=== PATIENT | male | born 1970 | race Caucasian/White ===

== ENCOUNTER 2019-06-02 05:31 | Inpatient (IN) | payer OTHER ==
[~2019-06-02] VITALS: Ht 175.3 cm; Wt 104.8 kg
[2019-06-02] VITALS (10 sets, daily range): BP systolic 96–158; BP diastolic 53–86
[2019-06-02] MEDS ORDERED: ONDANSETRON PF 4 MG/2 ML VIAL. IVP PRN ×2 (06:00→12:45)
[2019-06-02] MEDS: fentaNYL PF VIAL 100 MCG/2 ML VIAL IVP PRN ×2 (06:22→09:24)
[2019-06-02] MEDS: IV NORMAL SALINE 1000ML BAG 1,000 ML IV SCH ×2 (06:31→13:32)
[2019-06-02] MEDS ORDERED: VENTOLIN HFA18 GM INH (06:45)
--- NOTE | 2019-06-02 06:55 | NUR ---
Admit to 2north room 206 via EMS from [facility]. A/O x 4. Dx SBO. VSS. Orientated to room and POC. Verbalized understanding. Resting in bed with call light at hand.
[2019-06-02] MEDS ORDERED: IV NORMAL SALINE 1000ML BAG 1,000 ML IV ONE (08:45)
[2019-06-02] MEDS ORDERED: PIPERACILLIN/TAZOBACTAM 3.375 GM in IV NORMAL SALINE 50ML 50 ML IV SCH (08:45)
--- NOTE | 2019-06-02 08:55 | HP ---
ADMIT DATE: 06/02/2019 HISTORY OF PRESENT ILLNESS: The patient is a 48-year-old male patient who presented to the Emergency Room of [facility] complaining of abdominal pain. Apparently, he has not been able to eat and drink because of severe pain that started on 's Jeniffer. He has not had any bowel movement, has not passed any gas since 's Jeniffer. He was extensively evaluated in the Emergency Room and the lab work showed leukocytosis, white cell count 12,900 and thrombocytosis. He has also lactic acidosis, impaired kidney function and his CT scan of the abdomen and pelvis showed that he has scattered loops of dilated as well as thick walled and hyperenhancing small bowel scattered throughout the abdomen, small amount of pneumoperitoneum, as well as complex free fluid. The greatest volume of which is seen within the pelvis. There is no discrete transition point to suggest perforation related to high-grade mechanical obstruction and spontaneous perforation secondary to active inflammation in the setting of reported Crohn's is really consideration. The site of perforation is favored at the left lower quadrant given inflammation, greatest at this location. No drainable fluid collection. The colon is collapsed distal to the splenic flexure, more proximal fluid within the colonic lumen and mild distention measuring up to 7.2 cm. No pneumatosis, no focal abnormality of the stomach. The low attenuation in the liver can be seen with hepatic steatosis, distended gallbladder without calcified stones or finding of cholecystitis, no focal pancreatic abnormality. Unremarkable spleen, adrenal glands and kidneys and mostly collapsed urinary bladder, dystrophic mineralization within the prostate. Therefore, the patient has an NG tube placed and was transferred to [facility] for surgical consult. PAST MEDICAL HISTORY: Significant for Crohn's disease; however, according to his , he has not seen a doctor for almost 10 years now. He has bronchial asthma/COPD, history of nephrolithiasis, had a stone, for which he underwent retrograde pyelography and stone retrieval and stent placement and removal. PAST SURGICAL HISTORY: Significant for cystoscopy, retrograde pyelography and stent placement. ALLERGIES: He has no known drug allergies. MEDICATIONS: He is currently only on inhalers. FAMILY HISTORY: He has 4 brothers and 1 sister older. He is the youngest. His father at the age of 58 because of myocardial infarction. His mother also because of some lung disease. SOCIAL HISTORY: He is , has 3 daughters. Quit smoking about 8 years ago; however, continues to chew tobacco. He used to be a heavy drinker, but over the last 8 years he cut down the amount of alcohol drinking, the last drink was about a month ago. He used marijuana occasionally. He works installing windows. REVIEW OF SYSTEMS: The patient denied any blurring of vision, cataract, glaucoma or macular degeneration. Denied any earache, tinnitus or sensorineural deafness. Denied any nosebleeds, stuffy nose or postnasal drip. Denied any sore throat, sore tongue, toothache, hoarseness of voice or difficulty swallowing. Denied any nausea, vomiting, but has not had any bowel movement or passed any gas since s Jeniffer. Did complain of severe abdominal pain. Denied any dysuria, frequency or hematuria. Denied any chest pain, shortness of breath, orthopnea, paroxysmal nocturnal dyspnea. Denied any cough, phlegm or hemoptysis. Denied any chills, rigors or fever. PHYSICAL EXAMINATION: GENERAL: On arrival to the Emergency Room, he was clearly in distress and pain, but there was no pallor, jaundice, cyanosis or thyromegaly. No jugular venous distention. No limb edema. VITAL SIGNS: His heart rate was 119, blood pressure was 140/90, temperature was 98.2, respiratory rate was 26 and oxygen saturation was 97%. HEAD, EYES, EARS, NOSE AND THROAT: Showed normocephalic, atraumatic. NECK: Supple. HEART: Showed normal first and second heart sounds. No gallop or murmur. CHEST: Clear to auscultation. No crepitation or rhonchi. ABDOMEN: Markedly distended, diffusely tender and bowel sounds are sluggish. NEUROLOGIC: He is awake, alert, responding appropriately. All cranial nerves intact. EXTREMITIES: He moves extremities without difficulty. He has a NG tube to intermittent suction. LABORATORY DATA: Showed a white cell count 12,900, hemoglobin 14.4, hematocrit 43, MCV 82 and platelet count of 695,000 with normal manual differential. His chemistry showed a serum sodium 141, potassium 4.3, chloride 102, bicarbonate 26, anion gap of 13, BUN 25, creatinine 1.7, estimated GFR was 43 mL per minute. His glucose 143. Lactic acid is going up from 3.1, has risen to 4.9. Calcium was 9.6. Total bilirubin, AST, ALT, alkaline phosphatase were normal. CK was 52. Total protein was 7.5, albumin was 3.3. Amylase and lipase are normal. His prothrombin time, INR and aPTT were normal. His acute abdomen series showed a large gas, dilated segment of small bowel with air fluid levels concerning for small bowel obstruction. The enteric catheter demonstrated on the exam time, earlier is not seen. Correlation with presence of the catheter was advised. His CT scan of the abdomen and pelvis showed that he has scattered loops of dilated as well as thick walled and hyperenhancing small bowel, scattered throughout the abdomen. Small amount of pneumoperitoneum, as well as complex free fluid. The greatest volume of which is seen within the pelvis. There is no discrete transition point to suggest perforation related to high-grade mechanical obstruction and spontaneous perforation secondary to active inflammation in the setting of reported Crohn's disease really consideration. The site of perforation is favored at left lower quadrant given inflammation greatest at this location. No drainable fluid collection. The KUB showed that the enteric catheter tip terminates in the region of the stomach. The patient was transferred to [facility] with bowel obstruction and perforation. He will be kept n.p.o., continue with IV fluid, IV antiemetic and pain medication. We will consult the real estate leasing agent as well as the surgical team. SAMREEN GOODE MD DR: ACE/suzette JOB#: [id number] / [id number]
--- NOTE | 2019-06-02 09:38 | PDOC2 ---
CHAPARRITA FERNANDO QUALITY ASSURANCE ASSOCIATE 06/02/19 0938: CONSULT Date of Consult Date of Consult DATE: 06/02/19 TIME: 09:30 Reason for Consult Reason for Consult: abd pain Referring Physician Referring Physician: Dr Knapp Identification/Chief Complaint Chief Complaint abdominal pain Source Source: Chart review, Patient History of Present Illness Reason for Visit: Patient is a pretty poor historian Reports acute onset of lower abdominal pain after eating on New years Jeniffer. Associated nausea, emesis, denies diarrhea. Pain continued to worsen There is some question in history about Crohns, reports colonoscopy 10 years ago, thought crohns, never had treatment CT at [facility] concerning for bowel perf, concern related to inflammatory disease, elevated lactic Past Medical History Pulmonary: COPD GI: Other (? inflammatory bowel disease ) Past Surgical History Past Surgical History: No pertinent history Family History Family History: Other (noncontributory to current illness ) Social History No ALCOHOL: rare Drugs: None Lives: with Family Current Medications Current Medications Current Medications Sodium Chloride 1,000 ml @ 150 mls/hr Q6H40M IV Last administered on 06/02/19at 06:31; Start 06/02/19 at 06:00 Metronidazole 100 ml @ 100 mls/hr Q8HRS IV ; Start 06/02/19 at 14:00; Stop 06/02/19 at 08:36; Status DC Ceftriaxone Sodium (Rocephin) 1 gm Q24H IVP ; Start 06/02/19 at 23:00; Stop 06/02/19 at 08:36; Status DC Ondansetron HCl (Zofran) 4 mg PRN Q4HRS PRN IVP NAUSEA/VOMITING 1ST CHOICE; Start 06/02/19 at 06:00 Fentanyl Citrate (Fentanyl 2ml Vial) 50 mcg PRN Q3HRS PRN IVP SEVERE PAIN 7-10 Last administered on 06/02/19at 06:22; Start 06/02/19 at 06:15 Sodium Chloride 1,000 ml @ 1,000 mls/hr 1X ONCE IV ; Start 06/02/19 at 08:45; Stop 06/02/19 at 09:44 Piperacillin Sod/ Tazobactam Sod 3.375 gm/Sodium Chloride 50 ml @ 100 mls/hr Q8H IV ; Start 06/02/19 at 08:45; Stop 1/2/20 at 09:23; Status DC Linezolid/Dextrose 300 ml @ 300 mls/hr Q12HR IV ; Start 06/02/19 at 09:00 Piperacillin Sod/ Tazobactam Sod 3.375 gm/Sodium Chloride 50 ml @ 100 mls/hr Q6HRS IV ; Start 06/02/19 at 10:00 Active Scripts Active Reported Ventolin Hfa Inhaler (Albuterol Sulfate) 18 Gm Hfa.aer.ad 2 Puff INH QID PRN Allergies Allergies: Coded Allergies: No Known Allergies (Verified Allergy, Unknown, 06/02/19) ROS General: YES: Chills, Fatigue PSYCHOLOGICAL ROS: No: Anxiety, Depression Eyes: No Blurry vision, No Double vision HEENT: No: Heacaches, Sore Throat Respiratory: No: Cough Cardiovascular: No Chest Pain, No Palpitations Gastrointestinal: Yes Other (see hpi) Genitourinary: YES Dysuria; No Hematuria Musculoskeletal: No Joint Pain, No Muscular Weakness Neurological: No Impaired Coord/balance, No Numbness/Tingling Skin: No Pruritus, No Rash Physical Exam General: Alert, Oriented X3, Cooperative HEENT: Atraumatic, PERRLA, Other (NG in place, bloody drainage ) Lungs: Clear to auscultation, Normal air movement Heart: Regular rate, Normal S1, Normal S2 Abdomen: Other (distended, firm, tender on exam) Extremities: No clubbing, No cyanosis Skin: No rashes, No breakdown Neuro: Normal gait, Normal speech Psych/Mental Status: Mental status NL, Mood NL Vitals VITALS Vital Signs Date Time Temp Pulse Resp B/P (MAP) Pulse Ox O2 Delivery O2 Flow Rate FiO2 06/02/19 07:00 99.1 101 16 121/75 (90) 94 Nasal Cannula 99.1 Images Images Impression: 1. Scattered loops of dilated as well as thick walled and hyperenhancing small bowel scattered throughout the abdomen. Small amount of pneumoperitoneum as well as complex free fluid the greatest volume of which is seen within the pelvis. There is no discrete transition point to suggest perforation related to a high-grade mechanical obstruction and spontaneous perforation secondary to active inflammation in the setting of reported Crohn's is the leading consideration. The site of perforation is favored at the left lower quadrant given inflammation greatest at this location. No drainable fluid collection. 2. Additional chronic findings as discussed above. Assessment/Plan Assessment/Plan Ct reviewed--concern for bowel perf, noted lactic at [facility] 4.9--labs this AM pending ? crohns, awaiting previous path from colonoscopy--D/W Joann from GI will review with TAYLOR Mckinley MD 06/02/19 1016: CONSULT Assessment/Plan Assessment/Plan Pt seen and examined. Agree with MsAngely Fernando's note Pt with c/o severe pain, elevated lactic acid NGT in place with minimal serosang output, non billious abd obese, distended, diffuse TTP with guarding Given imaging, clinical status and labs, favor urgent exploratory laparotomy for perforation of unknown source. Crohn's versus diverticulitis. Pt with previous concern for crohn's but not biopsy proven. R/R/B/A d/w pt and pt's supportive . Risks, including, but not limited to: bleeding, infection, damage to surrounding structures, risk of anesthesia, risk of , risk of stoma. Pt is at increased risk given comorbidity, specifically COPD. Thanks for consult! CHAPARRITA FERNANDO APRN Jun 02, 2019 09:38 TAYLOR PURDY MD Jun 02, 2019 10:16
[2019-06-02 09:43] LABS: BASO % 0 % (0-3); EOS % 0 % (0-3); HEMATOCRIT 37.4 % (39.0-53.0); HEMOGLOBIN 12.1 g/dL (13.0-17.5); LYMPH # 0.3 x10^3/uL (1.0-4.8); LYMPH % 3 % (24-48); MEAN CORPUSCULAR HEMOGLOBIN 27 pg (25-35); MEAN CORPUSCULAR HGB CONC 32 g/dL (31-37); MEAN CORPUSCULAR VOLUME 84 fL (79-100); MONO # 0.5 x10^3/uL (0.0-1.1); MONO % 6 % (0-9); NEUT # 7.5 x10^3/uL (1.8-7.7); NEUT % 91 % (31-73); PLATELET COUNT 422 x10^3/uL (140-400); RED BLOOD COUNT 4.46 x10^6/uL (4.30-5.70); RED CELL DISTRIBUTION WIDTH 14.9 % (11.5-14.5); WHITE BLOOD COUNT 8.2 x10^3/uL (4.0-11.0)
--- NOTE | 2019-06-02 09:52 | PDOC2 ---
GI CONSULT Reason For Consult: Crohn's disease HPI: HPI: 48 y/o male transferred from [facility]. Terrible "bloating" abdominal discomfort associated w/ vomiting and a little diarrhea that began without precipitating events on JOHNNIE. says he often has GI issues and sees PCP for antibiotics. He denies this. There is some questionable h/o Crohn's disease - he says about 10 years ago this was suggested as diagnosis because he had runny stools. He says he had an EGD and colonoscopy at some point but can't remember when or any significant findings. He says his PCP gave him 6 pills a day for awhile but it's unclear if that helped his symptoms. Has been off of those medications for awhile. He indicates that runny stools have not been a chronic issue. Denies reflux/heartburn, dysphagia, hematemesis, hematochezia, melena, constipation, and weight loss. No GB, liver, pancreas, or PUD history. At [facility]: WBC 12.9, elevated lactic acid. On CT: scattered loops of dilated and thicken walled and hyperenhancing small bowel scattered throughout abdomen, small amount of pneumoperitoneum as well as complex free fluid (greatest in pelvis), no discrete transition point to suggest perforation related to a high-grade mechanical obstruction and spontaneous perforation second to active inflammation in the setting of reported Crohn's, site of perforation favored in LLQ Reviewed office records after I saw him - Office visit in 12/2009 indicated worsening diarrhea and periumbilical pain associated w/ anorexia. CT scan apparently showed thickening of distal ileum raising question of Crohn's. Another office visit that month noted improved abd pain, diarrhea, and appetite w/ prednisone, Pentasa, and decreased use of tobacco. Also indicated small bowel involvement on SBS. EGD and colonoscopy for abdominal pain and chronic diarrhea in 11/2009 showed normal esophagus, gastritis, and mild atrophic duodenitis (biopsy w/o significant pathologic abnormalities), and internal hemorrhoids. PMH: PMH: Crohn's disease, nephrolithiasis, COPD FH: Family History: No pertinent hx (denies IBD), Cancer (office records note FH colon cancer - he denies) Social History: Smoke: Quit ALCOHOL: occassional Drugs: None ROS: GEN: Denies fevers, chills, sweats HEENT: Denies blurred vision, sore throat CV: Denies chest pain RESP: Denies shortness of air, cough GI: Per HPI : Denies hematuria, dysuria ENDO: Denies weight changes NEURO: Denies confusion, dizziness MSK: Denies weakness, joint pain/swelling SKIN: Denies jaundice, pruritus Vitals: Vitals: Vital Signs Date Time Temp Pulse Resp B/P (MAP) Pulse Ox O2 Delivery O2 Flow Rate FiO2 06/02/19 09:24 Room Air 06/02/19 07:00 99.1 101 16 121/75 (90) 94 99.1 Labs: Labs: Per HPI. Allergies: Coded Allergies: No Known Allergies (Verified Allergy, Unknown, 06/02/19) Medications: Current Medications Medications (Trade) Dose Ordered Sig/Bebeto Route PRN Reason Start Time Stop Time Status Last Admin Dose Admin Sodium Chloride 1,000 ml @ 150 mls/hr Q6H40M IV 06/02/19 06:00 06/02/19 06:31 Fentanyl Citrate (Fentanyl 2ml Vial) 50 mcg PRN Q3HRS PRN IVP SEVERE PAIN 7-10 06/02/19 06:15 06/02/19 09:24 Sodium Chloride 1,000 ml @ 1,000 mls/hr 1X ONCE IV 06/02/19 08:45 06/02/19 09:44 DC 06/02/19 09:25 Linezolid/Dextrose 300 ml @ 300 mls/hr Q12HR IV 06/02/19 09:00 06/02/19 09:24 Imaging: Imaging: Per HPI. PE: GEN: uncomfortable HEENT: NG tube w/ minimal very light watery red output LUNGS: NC HEART: mildly tachycardic ABD: distended, diffuse discomfort, quiet EXTREMITY: No edema SKIN: No rashes, no jaundice NEURO/PSYCH: A & O 3 A/P: A/P: Suspected h/o Crohn's disease - abnormal SB imaging in 2009 according to office records; EGD and colonoscopy unrevealing at that time; treated w/ Pentasa and prednisone w/ improvement of pain and diarrhea Abd distention/pain, vomiting - acute onset 05/31 Leukocytosis, lactic acidosis Abnormal CT - pneumoperitoneum, free fluid CRC screen - normal in 2009 -- D/w Betty and Dr. Knapp. Follow surgical and ID recs. Add acid-clinical support tech. CRESCENCIO CHANDRA Jun 02, 2019 09:52
[2019-06-02 09:56] LABS: CALCIUM 7.9 mg/dL (8.5-10.1); CREATININE 1.6 mg/dL (0.7-1.3); POTASSIUM 4.4 mmol/L (3.5-5.1)
[2019-06-02] MEDS ORDERED: IV RINGERS,LACTATED 1000ML 1,000 ML IV SCH (09:56)
[2019-06-02] MEDS ORDERED: PROCHLORPERAZINE 10 MG/2 ML VIAL. IV PRN (10:00)
[2019-06-02] MEDS ORDERED: ONDANSETRON PF 4 MG/2 ML VIAL. IV PRN (10:00)
[2019-06-02] MEDS ORDERED: LIDOCAINE 1% PF 2 ML VIAL. ID PRN (10:00)
[2019-06-02] MEDS ORDERED: MORPHINE SULFATE 2 MG/ML VIAL. IV PRN (10:00)
[2019-06-02] MEDS ORDERED: HYDROmorphone 2 MG/ML VIAL IV PRN (10:00)
[2019-06-02] MEDS ORDERED: fentaNYL PF VIAL 100 MCG/2 ML VIAL IV PRN (10:00)
[2019-06-02 10:01] LABS: ALBUMIN 2.4 g/dL (3.4-5.0); ALBUMIN/GLOBULIN RATIO 0.7 (1.0-1.7); TOTAL BILIRUBIN 0.8 mg/dL (0.2-1.0)
[2019-06-02] MEDS ORDERED: ROCURONIUM 50 MG/5 ML VIAL. ONE ×2 (10:27→12:10)
[2019-06-02] MEDS ORDERED: SUCCINYLCHOLINE 200 MG/10 ML VIAL. ONE (10:27)
[2019-06-02] MEDS ORDERED: ONDANSETRON PF 4 MG/2 ML VIAL. ONE (10:27)
[2019-06-02] MEDS ORDERED: MIDAZOLAM HCL/PF 2 MG/2 ML VIAL. ONE (10:27)
[2019-06-02] MEDS ORDERED: fentaNYL PF VIAL 100 MCG/2 ML VIAL ONE ×3 (10:27→13:52)
[2019-06-02] MEDS ORDERED: PROPOFOL 20 ML IV ONE (10:27)
[2019-06-02] MEDS ORDERED: FAMOTIDINE 20 MG/2 ML VIAL ONE (10:27)
[2019-06-02] MEDS ORDERED: DEXAMETHASONE SOD PHOS 4 MG/ML VIAL ONE (10:27)
[2019-06-02] MEDS: PIPERACILLIN/TAZOBACTAM 3.375 GM in IV NORMAL SALINE 50ML 50 ML IV SCH ×4 (10:45→23:43)
[2019-06-02] MEDS ORDERED: PIPERACILLIN/TAZOBACTAM 3.375 GM in IV NORMAL SALINE 50ML 50 ML IV ONE (10:45)
[2019-06-02 10:50] LABS: % BANDS 21 % (0-9); % LYMPHS 5 % (24-48); % MONOS 6 % (0-10); % MYELOS 1 % (0-0); % SEGS 67 % (35-66); PLT ESTIMATE ADEQUATE (ADEQUATE)
[2019-06-02] MEDS ORDERED: HYDROmorphone 2 MG/ML VIAL ONE (11:34)
[2019-06-02] MEDS ORDERED: 0.9 % SODIUM CHLORIDE 20 ML VIAL. IJ ONE (11:34)
[2019-06-02] MEDS ORDERED: LABETALOL 20 MG/4 ML DISP.SYRIN. IVP ONE (11:45)
[2019-06-02] MEDS ORDERED: HYDROmorphone STANDARD PCA 12 MG/30 ML SYRINGE. IV ONE (12:00)
[2019-06-02] MEDS ORDERED: GLYCOPYRROLATE 1 MG/5 ML VIAL. ONE (12:15)
[2019-06-02] MEDS ORDERED: NEOSTIGMINE METHYLSULFATE 5 MG/5 ML SYRINGE. ONE (12:15)
[2019-06-02] MEDS ORDERED: SEVOFLURANE 61 TO 120 MINUTES. IH ONE (12:18)
--- NOTE | 2019-06-02 12:20 | NUR ---
SS following for discharge planning. SS reviewed pt chart. Pt is from home with spouse and is currently on room air. SS will continue to follow for discharge planning.
[2019-06-02] MEDS ORDERED: NALOXONE 0.4 MG/ML VIAL. IV PRN (12:45)
[2019-06-02] MEDS ORDERED: 0.9 % SODIUM CHLORIDE 10 ML DISP.SYRIN. IV PRN (12:45)
--- NOTE | 2019-06-02 12:50 | PDOC4 ---
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 Midline incision was made with cautery. Fascia divided in midline. Large amount of ascites evacuated which was purulent in nature. Cultures obtained. Abdominal cavity was explored and findings as above. Appendix was identified and resected, given suspect crohn's. Mesoappendix divided with ligasure. Base of appendix divided with KRISTIE stapler. Staple line oversewn with 3 0 vicryl. Appendix sent to pathology for evaluation. Small bowel area of concern was addressed. This was in the distal small bowel. Multiple skip lesions noted in this area. Adherent small bowel to another more distal segment noted. 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 Inflammation and infection appeared to be coming from this area. Small bowel resected proximal and distally to these areas of concern using KRISTIE. Mesentery taken with ligasure. Mesenteric vessels controlled with 3 0 vicryl. Specimen sent to pathology for evaluation. Extent of resection attempted to be minimized, given concern for crohn's. Side to side stapled anastomosis created with KRISTIE stapler 75. End sealed with TA 60. Anastomosis reinforced with 3 0 vicryl. Anastomosis noted to be patent, viable, under no tension and without evidence of leakage. Copious irrigation. No evidence of bleeding or other pathology noted. Remaining small bowel still with multiple skip lesions, but viable otherwise. Fascia repaired with 0 looped PDS. Skin repaired with 3 0 vicryl and 4 0 monocryl. [place] left in wound and secured with 3 0 PDS. Dressing placed. Patient tolerated procedure well and sent to PACU in stable condition. All counts correct. Wound class is dirty, 4. Difficult procedure throughout, given patient's obesity and extensive, diffuse peritonitis as well as crohn's changes of the bowel. Perioperative complication risk is high, given these findings, as well as COPD history. Ostomies to be avoided in crohn's as well as with thick abdominal wall. TAYLOR PURDY MD Jun 02, 2019 12:50
[2019-06-02] MEDS: ENOXAPARIN 40 MG/0.4 ML SYRINGE. SQ SCH (13:00)
[2019-06-02] MEDS: HYDROmorphone 12mg/30ml PCA 30 ML IV PRN (13:22)
[2019-06-02] MEDS: fentaNYL PF VIAL 100 MCG/2 ML VIAL IV PRN ×2 (13:59→14:15)
--- NOTE | 2019-06-02 13:59 | RAD ---
KUB 06/02/2019 12:00 AM INDICATION: Postoperative KUB in the OR. Post exploratory laparoscopy and bowel resection. COMPARISON: Abdominal radiograph 06/20/2019 TECHNIQUE: Single view the abdomen is provided. FINDINGS/ IMPRESSION: 1. Dilated small bowel loops are present. Nasogastric tube is partially profiled at the distal tip projecting over the expected region of the stomach. Bowel wall thickening is noted the central abdomen with bowel loops measuring up to 4.1 cm compatible with small bowel obstruction. 2. Free intraperitoneal air most favors recent postoperative status. 3. No radiopaque foreign density. Electronically signed by: Anu Forrester MD (06/02/2019 1:56 PM) [id number]
[2019-06-02] MEDS: IV RINGERS,LACTATED 1000ML 1,000 ML IV SCH ×2 (15:10→23:43)
--- NOTE | 2019-06-02 17:07 | NUR ---
Left arterial line positional, unable to get blood return. Line dc'd. site soft no hematoma, pressure dressing applied. Pt taking ice chips. NG to LCS, placement verified. Very little gastric return at this time.
--- NOTE | 2019-06-02 19:02 | NUR ---
Pt still stating pain at a 8 out of 10. Dose increased to 0.2mg q 10 minutes as per order. Family at bedside.
[2019-06-02] MEDS ORDERED: cefTRIAXone IV Push 1 GM VIAL. IVP SCH (23:00)
[2019-06-03] VITALS (16 sets, daily range): BP systolic 112–148; BP diastolic 65–98
[2019-06-03] MEDS: HYDROmorphone 12mg/30ml PCA 30 ML IV PRN (03:26)
[2019-06-03] MEDS: PIPERACILLIN/TAZOBACTAM 3.375 GM in IV NORMAL SALINE 50ML 50 ML IV SCH ×4 (06:01→23:59)
[2019-06-03] MEDS: IV RINGERS,LACTATED 1000ML 1,000 ML IV SCH ×2 (08:07→17:41)
--- NOTE | 2019-06-03 08:08 | PN ---
DATE: 06/03/2019 SUBJECTIVE: The patient is resting flat, comfortably, in no apparent respiratory distress. He continued to have some abdominal pain. So far, he did not have any bowel movement or pass any gas. He underwent exploratory laparotomy, lysis of adhesions, small bowel resection, and appendectomy. 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 Normal stomach. Normal liver and gallbladder. OBJECTIVE: GENERAL: I examined him this morning, he was resting flat with an NG tube to intermittent suction. He was somewhat pale, no jaundice, cyanosis or thyromegaly. No jugular venous distention. No lower limb edema. VITAL SIGNS: His heart rate was 68, his blood pressure was 141/80, temperature 98.7, respiratory rate was 18 and oxygen saturation was 97% on 2 liters of oxygen. HEAD, EYES, EARS, NOSE AND THROAT: Showed normocephalic, atraumatic. NECK: Supple. HEART: Showed normal first and second heart sounds. No gallop or murmur. CHEST: Clear to auscultation. No crepitation or rhonchi. ABDOMEN: Slightly distended, diffusely tender with midline surgical incision covered with dressing. Bowel sounds are sluggish. NEUROLOGIC: He is awake, alert, responding appropriately. All cranial nerves are intact. He moves extremities without difficulty. His intake over the last 24 hours was 6700, output was 1740 mL. LABORATORY DATA: Today's labs are still pending at the time of this dictation. ASSESSMENT: Perforated small bowel, status post exploratory laparotomy, lysis of adhesion, small bowel resection, appendectomy. Other problems include bronchial asthma/chronic obstructive pulmonary disease, nephrolithiasis. PLAN: To continue with IV fluid, continue with IV antibiotic in the form of Zyvox, piperacillin and tazobactam. Continue with DVT prophylaxis. Continue pain management. SAMREEN GOODE MD DR: ACE/suzette JOB#: [id number] / [id number]
--- NOTE | 2019-06-03 09:35 | PDOC ---
SURGICAL PROGRESS NOTE Subjective up in chair this AM comfortable Vital Signs Vital Signs Date Time Temp Pulse Resp B/P (MAP) Pulse Ox O2 Delivery O2 Flow Rate FiO2 06/03/19 09:00 61 14 122/82 (95) 97 Nasal Cannula 2.0 06/03/19 08:00 98.5 98.5 I&O Intake and Output 06/03/19 07:00 Intake Total 6756 ml Output Total 1740 ml Balance 5016 ml Intake IV Total 6756 ml Output Urine Total 1625 ml Gastric Drainage Total 15 ml Estimated Blood Loss 100 ml # Voids 1 PATIENT HAS A HASKINS: Yes General: Alert, Cooperative HEENT: Other (NG in place) Abdomen: Soft, Other (binder in place) Labs Laboratory Tests Test 06/02/19 09:10 06/02/19 17:35 White Blood Count 8.2 x10^3/uL (4.0-11.0) Red Blood Count 4.46 x10^6/uL (4.30-5.70) Hemoglobin 12.1 g/dL (13.0-17.5) Hematocrit 37.4 % (39.0-53.0) Mean Corpuscular Volume 84 fL (79-100) Mean Corpuscular Hemoglobin 27 pg (25-35) Mean Corpuscular Hemoglobin Concent 32 g/dL (31-37) Red Cell Distribution Width 14.9 % (11.5-14.5) Platelet Count 422 x10^3/uL (140-400) Neutrophils (%) (Auto) 91 % (31-73) Lymphocytes (%) (Auto) 3 % (24-48) Monocytes (%) (Auto) 6 % (0-9) Eosinophils (%) (Auto) 0 % (0-3) Basophils (%) (Auto) 0 % (0-3) Neutrophils # (Auto) 7.5 x10^3/uL (1.8-7.7) Lymphocytes # (Auto) 0.3 x10^3/uL (1.0-4.8) Monocytes # (Auto) 0.5 x10^3/uL (0.0-1.1) Eosinophils # (Auto) 0.0 x10^3/uL (0.0-0.7) Basophils # (Auto) 0.0 x10^3/uL (0.0-0.2) Segmented Neutrophils % 67 % (35-66) Band Neutrophils % 21 % (0-9) Lymphocytes % 5 % (24-48) Monocytes % 6 % (0-10) Myelocytes % 1 % (0-0) Platelet Estimate Adequate (ADEQUATE) Sodium Level 142 mmol/L (136-145) Potassium Level 4.4 mmol/L (3.5-5.1) Chloride Level 106 mmol/L (98-107) Carbon Dioxide Level 26 mmol/L (21-32) Anion Gap 10 (6-14) Blood Urea Nitrogen 29 mg/dL (8-26) Creatinine 1.6 mg/dL (0.7-1.3) Estimated GFR (Cockcroft-Gault) 46.0 BUN/Creatinine Ratio 18 (6-20) Glucose Level 120 mg/dL (70-99) Lactic Acid Level 2.3 mmol/L (0.4-2.0) 2.3 mmol/L (0.4-2.0) Calcium Level 7.9 mg/dL (8.5-10.1) Total Bilirubin 0.8 mg/dL (0.2-1.0) Aspartate Amino Transf (AST/SGOT) 19 U/L (15-37) Alanine Aminotransferase (ALT/SGPT) 12 U/L (16-63) Alkaline Phosphatase 46 U/L (46-116) Total Protein 6.0 g/dL (6.4-8.2) Albumin 2.4 g/dL (3.4-5.0) Albumin/Globulin Ratio 0.7 (1.0-1.7) Laboratory Tests Test 06/02/19 17:35 Lactic Acid Level 2.3 mmol/L (0.4-2.0) Assessment/Plan abx, bowel rest CHAPARRITA WILKINSON SENIOR MECHANICAL DEVELOPMENT ENGINEER Jun 03, 2019 09:35
[2019-06-03] MEDS: FLUCONAZOLE 400MG/200ML PREMIX 200 ML IV SCH (10:40)
--- NOTE | 2019-06-03 10:40 | PDOC ---
Subjective: Subjective: Had better days. Objective: Vital Signs: Vital Signs Date Time Temp Pulse Resp B/P (MAP) Pulse Ox O2 Delivery O2 Flow Rate FiO2 06/03/19 09:00 61 14 122/82 (95) 97 Nasal Cannula 2.0 06/03/19 08:00 98.5 98.5 Labs: Laboratory Tests Test 06/02/19 17:35 Lactic Acid Level 2.3 mmol/L Imaging: KUB 06/02 IMPRESSION: 1. Dilated small bowel loops are present. Nasogastric tube is partially profiled at the distal tip projecting over the expected region of the stomach. Bowel wall thickening is noted the central abdomen with bowel loops measuring up to 4.1 cm compatible with small bowel obstruction. 2. Free intraperitoneal air most favors recent postoperative status. 3. No radiopaque foreign density. PE: GEN: NAD HEENT: NGT LUNGS: NC ABD: soft NEURO/PSYCH: A & O 3 A/P: Perforated SB w/ h/o Crohn's, s/p exp lap, GAVIN, SBR, and appendectomy 06/02/19 -- Continue per surgery, await pathology. CRESCENCIO CHANDRA Jun 03, 2019 10:40 JEAN BIGGS MD Jun 03, 2019 10:48
[2019-06-03] MEDS: AMINO AC 3%/ELECTROLYTE/GLYCER 1,000 ML IV SCH (11:46)
[2019-06-03] MEDS ORDERED: HYDROmorphone STANDARD PCA 12 MG/30 ML SYRINGE. IV ONE (12:00)
[2019-06-03] MEDS: IV NORMAL SALINE 1000ML BAG 1,000 ML IV SCH ×2 (12:34→14:33)
[2019-06-03] MEDS: ENOXAPARIN 40 MG/0.4 ML SYRINGE. SQ SCH (14:44)
--- NOTE | 2019-06-03 15:04 | CONS ---
DATE OF CONSULTATION: 06/03/2019 REFERRING PHYSICIAN: Santana Knapp MD REASON FOR CONSULTATION: Antibiotic management. HISTORY OF PRESENT ILLNESS: A 48-year-old male with history of Crohn's, who has not been on any treatment for a couple of years, started having abdominal pain around [place]. He thought he had a bad hamburger and felt like it would go away on its own. The patient then subsequently went to [facility] for evaluation of abdominal pain, was found to have leukocytosis, thrombocytosis and lactic acidosis. CT abdomen and pelvis showed scattered loops of dilated and thick walled hyperenhancing small bowel, small amount of pneumoperitoneum, as well as complex free fluid. NG tube was placed. He was started on antibiotics and was transferred to [facility] for surgical consult. He received Flagyl, linezolid and Zosyn. Currently, he is on Zosyn and linezolid. ID consult has been requested for antibiotic management. 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 The patient was subsequently admitted to ICU. Today, he feels a little better. States postop pain is under control. Denies any fevers, chills, nausea, vomiting, symptoms. PAST MEDICAL HISTORY: Crohn's disease, not on treatment for a couple of years, COPD, asthma, nephrolithiasis, underwent stent placement and removal. ALLERGIES: No known drug allergies. CURRENT MEDICATION: IV Zosyn, linezolid, also had been on metronidazole. FAMILY HISTORY: As per HPI. SOCIAL HISTORY: Quit smoking. Used to be a heavy drinker, quit the same marijuana use occasionally. Works installing windows. REVIEW OF SYSTEMS: Negative except for above in HPI. FAMILY HISTORY: As per HPI. PHYSICAL EXAMINATION: VITAL SIGNS: Temperature T-max 101, current temperature 98.7, pulse 68, respiratory rate 14, blood pressure 141/80, oxygen saturation 97% on 2 liters by nasal cannula. GENERAL: Alert, oriented x 3 male, pleasant, cooperative, in no acute distress, lying comfortably in bed. HEENT: Normocephalic, atraumatic, anicteric. No thrush. Oral mucosa moist. NECK: Supple, no JVD. LUNGS: Clear bilaterally. No wheezing. HEART: S1, S2. No gallops or murmurs. ABDOMEN: Distended. Dressing in place, dry, not taken down. Bowel sounds hypoactive. No rebound. GENITOURINARY: Burroughs in place. EXTREMITIES: No edema, no cyanosis. DERMATOLOGIC: Warm and dry. Changes of vitiligo. No generalized rash noted. PSYCHIATRIC: Cooperative, appropriate mood and affect. CENTRAL NERVOUS SYSTEM: Alert and oriented x 3, grossly nonfocal. LABORATORY DATA: WBC here is 8.2, was 12,000 at [place], hemoglobin 12.1, hematocrit 37.4, platelets 422, bands 21 Sodium 142, potassium 4.4, chloride 106, bicarbonate 26, BUN 29, creatinine 1.6, glucose 120. Lactate 2.3. Calcium 7.9. LFTs within normal limits. Albumin 2.4. Micro cultures pending at this time. IMAGING: KUB here at [facility] showed dilated small bowel loops, nasogastric tube is partially profiled at the distal tip projecting over the expected region of stomach, bowel wall thickening is noted over the central abdomen with bowel loops measuring 4.1 cm compatible with small bowel obstruction, free intraperitoneal air mostly favors his recent postoperative status. No radiopaque foreign density. IMPRESSION: 1. Perforated bowel, status post exploratory laparotomy for lysis of adhesions, small bowel resection and appendectomy. 2. Crohn's disease, not on any treatment for a couple of years. 3. Leukocytosis and lactic acidosis. 4. Acute kidney injury. RECOMMENDATIONS: 1. Continue Zosyn and linezolid. 2. Add fluconazole. 3. Follow up cultures and lab. 4. Continue supportive care. 5. Wound care per General Surgery. 6. Discussed with nursing staff. Thank you, Dr. Knapp, for consulting Infectious Disease to participate in this patient's care. If you have any questions, do not hesitate to contact me. MATY BARROS MD DR: AMERICO/suzette JOB#: [id number] / [id number]
[2019-06-03 17:41] LABS: BASO % 0 % (0-3); EOS % 0 % (0-3); HEMATOCRIT 31.6 % (39.0-53.0); HEMOGLOBIN 10.2 g/dL (13.0-17.5); LYMPH # 0.7 x10^3/uL (1.0-4.8); LYMPH % 6 % (24-48); MEAN CORPUSCULAR HEMOGLOBIN 27 pg (25-35); MEAN CORPUSCULAR HGB CONC 32 g/dL (31-37); MEAN CORPUSCULAR VOLUME 83 fL (79-100); MONO # 0.7 x10^3/uL (0.0-1.1); MONO % 6 % (0-9); NEUT # 10.5 x10^3/uL (1.8-7.7); NEUT % 88 % (31-73); PLATELET COUNT 365 x10^3/uL (140-400); RED BLOOD COUNT 3.79 x10^6/uL (4.30-5.70); RED CELL DISTRIBUTION WIDTH 14.8 % (11.5-14.5); WHITE BLOOD COUNT 11.9 x10^3/uL (4.0-11.0)
[2019-06-03 18:27] LABS: ALBUMIN 2.1 g/dL (3.4-5.0); ALBUMIN/GLOBULIN RATIO 0.6 (1.0-1.7); CALCIUM 8.3 mg/dL (8.5-10.1); CREATININE 1.1 mg/dL (0.7-1.3); GFR 70.9; POTASSIUM 4.9 mmol/L (3.5-5.1); TOTAL PROTEIN 5.9 g/dL (6.4-8.2)
[2019-06-03] MEDS: ACETAMINOPHEN 650 MG SUPP.RECT. PR PRN (21:19)
[2019-06-04] MEDS: AMINO AC 3%/ELECTROLYTE/GLYCER 1,000 ML IV SCH ×2 (00:02→12:02)
[2019-06-04 03:00] VITALS: BP 124/74
[2019-06-04] MEDS ORDERED: ALBUTEROL SULFATE 2.5 MG/3 ML NEBU. NEB PRN (03:00)
[2019-06-04] MEDS: ACETAMINOPHEN 650 MG SUPP.RECT. PR PRN (03:21)
[2019-06-04] MEDS: IV RINGERS,LACTATED 1000ML 1,000 ML IV SCH ×2 (04:24→11:54)
[2019-06-04] MEDS: PIPERACILLIN/TAZOBACTAM 3.375 GM in IV NORMAL SALINE 50ML 50 ML IV SCH ×3 (05:34→16:59)
[2019-06-04 07:00] VITALS: BP_SYST 109; BP_SYST 126; BP_DIAS 67; BP_DIAS 69
--- NOTE | 2019-06-04 10:07 | PATHOLOGY ---
[facility] Accession Number: [id number] . 01 Material submitted: . PART A: appendix - APPENDIX PART B: small bowel - SMALL BOWEL . 01 Clinical history: . History of Crohn's. . 02 Diagnosis: A. Appendix, appendectomy: - Serosal acute inflammation. - Fibrofatty obliteration of distal appendiceal lumen. . B. Segment of small intestine and attached mesentery, small bowel segmental resection: - Transmural active chronic enteritis (Crohn's disease) with areas of stricture, mucosal ulceration with focal fissuring and kris-enteric abscesses and reactive fibrosis, and serosal acute inflammation. - See comment. LBQ 06/03/2019 1506 Local . 02 Comment: The small bowel segment is unoriented. One of the ends shows absent transmural active chronic inflammation and serosal acute inflammation. The opposite end does show focal transmural active chronic inflammation with focal mucosal ulceration. There is no dysplasia or evidence of malignancy. (JPM/db; 06/03/2019) . 02 Electronically signed: . Raman Velasquez MD, Pathologist NPI- [id number] . 01 Gross description: . A. Received in formalin labeled "Maxwell Vargas, appendix" is an appendectomy specimen consisting of an appendix measuring 4.5 cm in length and 0.9 cm in diameter, and an attached portion of mesoappendix measuring 5.5 x 2.1 x 1.5 cm. The serosa is pink-lim with extensive lim-white purulent exudate. The proximal margin of the appendix is closed with a staple line. Upon sectioning, the cut surface displays a lumen measuring 0.2 cm in diameter. No perforations or fecaliths are identified. Outpatient Coding Specialist sections are submitted in cassette A1, with the proximal margin inked black. . B. Received in formalin labeled "Maxwell Vargas, small bowel" is an unoriented segment of small bowel measuring 45.7 cm in length and 3.0 cm in diameter. The margins are closed with staple lines. The serosa is pink-lim with focal hemorrhagic areas and lim-white purulent exudate covering 50% of the surfaces. The specimen is opened to reveal diffusely nodular and hemorrhagic mucosa over a 29.5 cm length. This area is located 3.7 and 9.0 cm from the margins. The bowel wall in this area measures up to 0.6 cm in thickness. The mucosa adjacent to the margins is pink-lim with slightly edematous but otherwise unremarkable folding. No perforations are grossly identified. Outpatient Coding Specialist sections are submitted as follows: B1-B2 mucosal margins B3-B4 utility sales representative serosa/mesenteric fat B5-B6 transition of nodular to uninvolved mucosa B7-B8 additional sections of nodular mucosa ([facility]/02/2019) [facility]/C 06/02/2019 [facility]5 Local . 02 Pathologist provided ICD-10: K35.80, K50.90, K63.3, K52.9 . 02 CPT . 408705, [id number] Specimen Comment: A courtesy copy of this report has been sent to [phone], [phone] Specimen Comment: [id number] Specimen Comment: Report sent to / DR TRIPLETT Performed at: 01 [facility] [address], [place] [id number] MD Alex Conroy MD Phone: [phone] Performed at: 02 [facility] [address], [place] [id number] MD Raman Velasquez MD Phone: [phone]
[2019-06-04 10:10] LABS: HEMATOCRIT 33.7 % (39.0-53.0); HEMOGLOBIN 10.9 g/dL (13.0-17.5); RED BLOOD COUNT 4.04 x10^6/uL (4.30-5.70); RED CELL DISTRIBUTION WIDTH 14.9 % (11.5-14.5); WHITE BLOOD COUNT 12.4 x10^3/uL (4.0-11.0)
[2019-06-04 10:25] LABS: ALBUMIN/GLOBULIN RATIO 0.5 (1.0-1.7); CALCIUM 8.2 mg/dL (8.5-10.1); CREATININE 1.2 mg/dL (0.7-1.3); GFR 64.1; POTASSIUM 4.2 mmol/L (3.5-5.1); TOTAL PROTEIN 6.2 g/dL (6.4-8.2)
[2019-06-04] MEDS: FLUCONAZOLE 400MG/200ML PREMIX 200 ML IV SCH (10:29)
[2019-06-04 11:00] VITALS: BP 122/71
--- NOTE | 2019-06-04 11:59 | PDOC ---
SURGICAL PROGRESS NOTE Subjective would like NG out has some rumbling, no gas yet Vital Signs Vital Signs Date Time Temp Pulse Resp B/P (MAP) Pulse Ox O2 Delivery O2 Flow Rate FiO2 06/04/19 11:00 98.1 85 16 122/71 (88) 94 Room Air 98.1 06/03/19 12:00 2.0 I&O l Intake and Output 06/04/19 07:00 Intake Total 2750 ml Output Total 4100 ml Balance -1350 ml Intake Oral 50 ml IV Total 2700 ml Output Urine Total 3700 ml Gastric Drainage Total 400 ml PATIENT HAS A HASKINS: Yes (follow UO) General: Alert Lungs: Normal air movement Abdomen: Soft, Other (dressing intact) Labs Laboratory Tests Test 06/02/19 17:35 06/03/19 17:00 06/04/19 09:40 Lactic Acid Level 2.3 mmol/L (0.4-2.0) White Blood Count 11.9 x10^3/uL (4.0-11.0) 12.4 x10^3/uL (4.0-11.0) Red Blood Count 3.79 x10^6/uL (4.30-5.70) 4.04 x10^6/uL (4.30-5.70) Hemoglobin 10.2 g/dL (13.0-17.5) 10.9 g/dL (13.0-17.5) Hematocrit 31.6 % (39.0-53.0) 33.7 % (39.0-53.0) Mean Corpuscular Volume 83 fL (79-100) 83 fL (79-100) Mean Corpuscular Hemoglobin 27 pg (25-35) 27 pg (25-35) Mean Corpuscular Hemoglobin Concent 32 g/dL (31-37) 32 g/dL (31-37) Red Cell Distribution Width 14.8 % (11.5-14.5) 14.9 % (11.5-14.5) Platelet Count 365 x10^3/uL (140-400) 421 x10^3/uL (140-400) Neutrophils (%) (Auto) 88 % (31-73) Lymphocytes (%) (Auto) 6 % (24-48) Monocytes (%) (Auto) 6 % (0-9) Eosinophils (%) (Auto) 0 % (0-3) Basophils (%) (Auto) 0 % (0-3) Neutrophils # (Auto) 10.5 x10^3/uL (1.8-7.7) Lymphocytes # (Auto) 0.7 x10^3/uL (1.0-4.8) Monocytes # (Auto) 0.7 x10^3/uL (0.0-1.1) Eosinophils # (Auto) 0.0 x10^3/uL (0.0-0.7) Basophils # (Auto) 0.0 x10^3/uL (0.0-0.2) Sodium Level 135 mmol/L (136-145) 134 mmol/L (136-145) Potassium Level 4.9 mmol/L (3.5-5.1) 4.2 mmol/L (3.5-5.1) Chloride Level 101 mmol/L (98-107) 99 mmol/L (98-107) Carbon Dioxide Level 27 mmol/L (21-32) 27 mmol/L (21-32) Anion Gap 7 (6-14) 8 (6-14) Blood Urea Nitrogen 22 mg/dL (8-26) 18 mg/dL (8-26) Creatinine 1.1 mg/dL (0.7-1.3) 1.2 mg/dL (0.7-1.3) Estimated GFR (Cockcroft-Gault) 70.9 64.1 BUN/Creatinine Ratio 20 (6-20) 15 (6-20) Glucose Level 112 mg/dL (70-99) 128 mg/dL (70-99) Calcium Level 8.3 mg/dL (8.5-10.1) 8.2 mg/dL (8.5-10.1) Total Bilirubin 1.0 mg/dL (0.2-1.0) 1.0 mg/dL (0.2-1.0) Aspartate Amino Transf (AST/SGOT) 37 U/L (15-37) 26 U/L (15-37) Alanine Aminotransferase (ALT/SGPT) 17 U/L (16-63) 19 U/L (16-63) Alkaline Phosphatase 46 U/L (46-116) 85 U/L (46-116) Total Protein 5.9 g/dL (6.4-8.2) 6.2 g/dL (6.4-8.2) Albumin 2.1 g/dL (3.4-5.0) 2.0 g/dL (3.4-5.0) Albumin/Globulin Ratio 0.6 (1.0-1.7) 0.5 (1.0-1.7) Laboratory Tests Test 06/03/19 17:00 06/04/19 09:40 White Blood Count 11.9 x10^3/uL (4.0-11.0) 12.4 x10^3/uL (4.0-11.0) Red Blood Count 3.79 x10^6/uL (4.30-5.70) 4.04 x10^6/uL (4.30-5.70) Hemoglobin 10.2 g/dL (13.0-17.5) 10.9 g/dL (13.0-17.5) Hematocrit 31.6 % (39.0-53.0) 33.7 % (39.0-53.0) Mean Corpuscular Volume 83 fL (79-100) 83 fL (79-100) Mean Corpuscular Hemoglobin 27 pg (25-35) 27 pg (25-35) Mean Corpuscular Hemoglobin Concent 32 g/dL (31-37) 32 g/dL (31-37) Red Cell Distribution Width 14.8 % (11.5-14.5) 14.9 % (11.5-14.5) Platelet Count 365 x10^3/uL (140-400) 421 x10^3/uL (140-400) Neutrophils (%) (Auto) 88 % (31-73) Lymphocytes (%) (Auto) 6 % (24-48) Monocytes (%) (Auto) 6 % (0-9) Eosinophils (%) (Auto) 0 % (0-3) Basophils (%) (Auto) 0 % (0-3) Neutrophils # (Auto) 10.5 x10^3/uL (1.8-7.7) Lymphocytes # (Auto) 0.7 x10^3/uL (1.0-4.8) Monocytes # (Auto) 0.7 x10^3/uL (0.0-1.1) Eosinophils # (Auto) 0.0 x10^3/uL (0.0-0.7) Basophils # (Auto) 0.0 x10^3/uL (0.0-0.2) Sodium Level 135 mmol/L (136-145) 134 mmol/L (136-145) Potassium Level 4.9 mmol/L (3.5-5.1) 4.2 mmol/L (3.5-5.1) Chloride Level 101 mmol/L (98-107) 99 mmol/L (98-107) Carbon Dioxide Level 27 mmol/L (21-32) 27 mmol/L (21-32) Anion Gap 7 (6-14) 8 (6-14) Blood Urea Nitrogen 22 mg/dL (8-26) 18 mg/dL (8-26) Creatinine 1.1 mg/dL (0.7-1.3) 1.2 mg/dL (0.7-1.3) Estimated GFR (Cockcroft-Gault) 70.9 64.1 BUN/Creatinine Ratio 20 (6-20) 15 (6-20) Glucose Level 112 mg/dL (70-99) 128 mg/dL (70-99) Calcium Level 8.3 mg/dL (8.5-10.1) 8.2 mg/dL (8.5-10.1) Total Bilirubin 1.0 mg/dL (0.2-1.0) 1.0 mg/dL (0.2-1.0) Aspartate Amino Transf (AST/SGOT) 37 U/L (15-37) 26 U/L (15-37) Alanine Aminotransferase (ALT/SGPT) 17 U/L (16-63) 19 U/L (16-63) Alkaline Phosphatase 46 U/L (46-116) 85 U/L (46-116) Total Protein 5.9 g/dL (6.4-8.2) 6.2 g/dL (6.4-8.2) Albumin 2.1 g/dL (3.4-5.0) 2.0 g/dL (3.4-5.0) Albumin/Globulin Ratio 0.6 (1.0-1.7) 0.5 (1.0-1.7) Assessment/Plan POD 2 NG trial ambulate KENNEDI BETANCOURT MD Jun 04, 2019 11:59
[2019-06-04] MEDS ORDERED: HYDROmorphone STANDARD PCA 12 MG/30 ML SYRINGE. IV ONE (12:00)
[2019-06-04] MEDS: IV NORMAL SALINE 1000ML BAG 1,000 ML IV SCH (12:02)
[2019-06-04] MEDS: ENOXAPARIN 40 MG/0.4 ML SYRINGE. SQ SCH (12:10)
[2019-06-04] MEDS: HYDROmorphone 12mg/30ml PCA 30 ML IV PRN (13:24)
--- NOTE | 2019-06-04 14:59 | PN ---
DATE: 06/04/2019 SUBJECTIVE: The patient is resting slightly propped up in bed, in no apparent respiratory distress. He continued to complain of abdominal pain, but so far has no bowel movement and passing any gas. PHYSICAL EXAMINATION: GENERAL: When I examined him, he looked well and was clearly in no apparent respiratory distress, slightly pale, no jaundice, cyanosis or thyromegaly. No jugular venous distention. No lower limb edema. VITAL SIGNS: His heart rate was 83, blood pressure was 126/67, temperature 97.8, respiratory rate was 16, and oxygen saturation was 93%. HEAD, EYES, EARS, NOSE AND THROAT: Showed normocephalic, atraumatic. NECK: Supple. HEART: Normal first and second heart sounds. No gallop or murmur. CHEST: Clear to auscultation. No crepitation or rhonchi. ABDOMEN: Distended, soft, no tenderness. Midline surgical incision covered with dressing. Bowel sounds are audible. NEUROLOGIC: He is awake, alert, responding appropriately. All cranial nerves intact. He moves extremities without difficulty, has an NG tube to the right nostril to intermittent suction. His intake was 6750, output was 1740. LABORATORY DATA: As of this morning, his white cell count was 11,900, hemoglobin 10, hematocrit 31, MCV 83, and platelet count 365. His serum sodium was 135, potassium 4.9, chloride 101, bicarbonate 27, anion gap of 7, BUN 22, creatinine 1.2, estimated GFR was 71 mL per minute, his glucose 119, calcium was 8.3. Total bilirubin, AST, ALT, alkaline phosphatase were normal. Total protein was 5.9, albumin 2.1. ASSESSMENT: 1. Perforated small bowel, status post exploratory laparotomy, lysis of adhesions, small bowel resection, appendectomy. 2. Other medical problems include diffuse peritonitis. 3. Other medical problems include bronchial asthma/chronic obstructive pulmonary disease. B. Nephrolithiasis. PLAN: To continue with IV antibiotic in the form of Zosyn, Zyvox and anidulafungin. Continue NG tube to intermittent suction. Continue with IV fluid, IV pain medication. Adjust antibiotics according to the result of blood and peritoneal fluid culture and sensitivity. SAMREEN GOODE MD DR: ACE/suzette JOB#: [id number] / [id number]
--- NOTE | 2019-06-04 14:59 | NUR ---
NG tube suction turned off for [address] Carcamo. Residual pulled after 2 hours 30cc. NG tube removed as ordered in free text for output <100cc.
[2019-06-04 15:00] VITALS: BP 135/77
--- NOTE | 2019-06-04 15:46 | PDOC ---
Infectious Disease Note Subjective Subjective Pain controlled, on PREPARATION DEPARTMENT SUPERVISOR pump Tolerating ice chips NGT out Fever 100.4 earlier Denies N/V/D/gas/SOA/chills ROS ROS per HPI Vital Sign Vital Signs Vital Signs Date Time Temp Pulse Resp B/P (MAP) Pulse Ox O2 Delivery O2 Flow Rate FiO2 06/04/19 15:02 94 Room Air 2.0 06/04/19 15:00 98.7 91 16 135/77 (96) 98.7 Physical Exam PHYSICAL EXAM GENERAL: Propped up in bed, alert and smiling HEENT: Oral cavity clear. NECK: Supple, no JVD. LUNGS: Clear bilaterally. No wheezing. HEART: S1, S2. No gallops or murmurs. ABDOMEN: Distended. Dressing in place, dry, not taken down. Bowel sounds hypoactive. EXTREMITIES: No edema, no cyanosis. DERMATOLOGIC: Warm and dry. Changes of vitiligo. No generalized rash noted. CENTRAL NERVOUS SYSTEM: Alert and oriented x 3, grossly nonfocal. PIV Labs Lab Laboratory Tests Test 06/03/19 17:00 06/04/19 09:40 White Blood Count 11.9 x10^3/uL (4.0-11.0) 12.4 x10^3/uL (4.0-11.0) Red Blood Count 3.79 x10^6/uL (4.30-5.70) 4.04 x10^6/uL (4.30-5.70) Hemoglobin 10.2 g/dL (13.0-17.5) 10.9 g/dL (13.0-17.5) Hematocrit 31.6 % (39.0-53.0) 33.7 % (39.0-53.0) Mean Corpuscular Volume 83 fL (79-100) 83 fL (79-100) Mean Corpuscular Hemoglobin 27 pg (25-35) 27 pg (25-35) Mean Corpuscular Hemoglobin Concent 32 g/dL (31-37) 32 g/dL (31-37) Red Cell Distribution Width 14.8 % (11.5-14.5) 14.9 % (11.5-14.5) Platelet Count 365 x10^3/uL (140-400) 421 x10^3/uL (140-400) Neutrophils (%) (Auto) 88 % (31-73) Lymphocytes (%) (Auto) 6 % (24-48) Monocytes (%) (Auto) 6 % (0-9) Eosinophils (%) (Auto) 0 % (0-3) Basophils (%) (Auto) 0 % (0-3) Neutrophils # (Auto) 10.5 x10^3/uL (1.8-7.7) Lymphocytes # (Auto) 0.7 x10^3/uL (1.0-4.8) Monocytes # (Auto) 0.7 x10^3/uL (0.0-1.1) Eosinophils # (Auto) 0.0 x10^3/uL (0.0-0.7) Basophils # (Auto) 0.0 x10^3/uL (0.0-0.2) Sodium Level 135 mmol/L (136-145) 134 mmol/L (136-145) Potassium Level 4.9 mmol/L (3.5-5.1) 4.2 mmol/L (3.5-5.1) Chloride Level 101 mmol/L (98-107) 99 mmol/L (98-107) Carbon Dioxide Level 27 mmol/L (21-32) 27 mmol/L (21-32) Anion Gap 7 (6-14) 8 (6-14) Blood Urea Nitrogen 22 mg/dL (8-26) 18 mg/dL (8-26) Creatinine 1.1 mg/dL (0.7-1.3) 1.2 mg/dL (0.7-1.3) Estimated GFR (Cockcroft-Gault) 70.9 64.1 BUN/Creatinine Ratio 20 (6-20) 15 (6-20) Glucose Level 112 mg/dL (70-99) 128 mg/dL (70-99) Calcium Level 8.3 mg/dL (8.5-10.1) 8.2 mg/dL (8.5-10.1) Total Bilirubin 1.0 mg/dL (0.2-1.0) 1.0 mg/dL (0.2-1.0) Aspartate Amino Transf (AST/SGOT) 37 U/L (15-37) 26 U/L (15-37) Alanine Aminotransferase (ALT/SGPT) 17 U/L (16-63) 19 U/L (16-63) Alkaline Phosphatase 46 U/L (46-116) 85 U/L (46-116) Total Protein 5.9 g/dL (6.4-8.2) 6.2 g/dL (6.4-8.2) Albumin 2.1 g/dL (3.4-5.0) 2.0 g/dL (3.4-5.0) Albumin/Globulin Ratio 0.6 (1.0-1.7) 0.5 (1.0-1.7) Micro Abdominal fluid GRAM STAIN RES 2 Final No organisms seen Objective Assessment Perforated bowel, status post exploratory laparotomy for lysis of adhesions, small bowel resection and appendectomy, 1/2 Crohn's disease, not on any treatment for a couple of years. Leukocytosis Lactic acidosis. Acute kidney injury. Plan Plan of Care Zyvox, Zosyn and fluconazole Repeat CBC in am f/u cultures Supportive care Attending Co-Sign The patient was seen and interviewed as well as examined at the bedside. The chart was reviewed. The case was discussed. Agree with the plan of care. DAVIDA BARRETT APRN Jun 04, 2019 15:46 ZEKE BARROS MD Jun 04, 2019 15:52
[2019-06-04] MEDS: ACETAMINOPHEN 325 MG TABLET. PO PRN (16:58)
[2019-06-04 19:00] VITALS: BP 147/86
[2019-06-04 23:00] VITALS: BP 127/72
[2019-06-05] MEDS: PIPERACILLIN/TAZOBACTAM 3.375 GM in IV NORMAL SALINE 50ML 50 ML IV SCH ×4 (00:06→17:29)
[2019-06-05] MEDS: AMINO AC 3%/ELECTROLYTE/GLYCER 1,000 ML IV SCH ×2 (00:07→13:14)
[2019-06-05] MEDS: IV RINGERS,LACTATED 1000ML 1,000 ML IV SCH ×2 (00:07→10:34)
[2019-06-05 03:00] VITALS: BP 122/74
[2019-06-05 07:00] VITALS: BP 127/74
--- NOTE | 2019-06-05 08:45 | PDOC ---
SURGICAL PROGRESS NOTE Subjective Carlos Alberto for Dr Grande no c/o with NG out had large BM Vital Signs Vital Signs Date Time Temp Pulse Resp B/P (MAP) Pulse Ox O2 Delivery O2 Flow Rate FiO2 06/05/19 07:00 98.1 85 16 127/74 (91) 94 Room Air 98.1 06/04/19 15:02 2.0 I&O Intake and Output 06/05/19 07:00 Intake Total 2050 ml Output Total 4505 ml Balance -2455 ml Intake Oral 50 ml IV Total 2000 ml Output Urine Total 4475 ml Gastric Drainage Total 30 ml PATIENT HAS A HASKINS: No General: Alert, No acute distress Abdomen: Soft, Other (incision clean and dry) Labs Laboratory Tests Test 06/03/19 17:00 06/04/19 09:40 White Blood Count 11.9 x10^3/uL (4.0-11.0) 12.4 x10^3/uL (4.0-11.0) Red Blood Count 3.79 x10^6/uL (4.30-5.70) 4.04 x10^6/uL (4.30-5.70) Hemoglobin 10.2 g/dL (13.0-17.5) 10.9 g/dL (13.0-17.5) Hematocrit 31.6 % (39.0-53.0) 33.7 % (39.0-53.0) Mean Corpuscular Volume 83 fL (79-100) 83 fL (79-100) Mean Corpuscular Hemoglobin 27 pg (25-35) 27 pg (25-35) Mean Corpuscular Hemoglobin Concent 32 g/dL (31-37) 32 g/dL (31-37) Red Cell Distribution Width 14.8 % (11.5-14.5) 14.9 % (11.5-14.5) Platelet Count 365 x10^3/uL (140-400) 421 x10^3/uL (140-400) Neutrophils (%) (Auto) 88 % (31-73) Lymphocytes (%) (Auto) 6 % (24-48) Monocytes (%) (Auto) 6 % (0-9) Eosinophils (%) (Auto) 0 % (0-3) Basophils (%) (Auto) 0 % (0-3) Neutrophils # (Auto) 10.5 x10^3/uL (1.8-7.7) Lymphocytes # (Auto) 0.7 x10^3/uL (1.0-4.8) Monocytes # (Auto) 0.7 x10^3/uL (0.0-1.1) Eosinophils # (Auto) 0.0 x10^3/uL (0.0-0.7) Basophils # (Auto) 0.0 x10^3/uL (0.0-0.2) Sodium Level 135 mmol/L (136-145) 134 mmol/L (136-145) Potassium Level 4.9 mmol/L (3.5-5.1) 4.2 mmol/L (3.5-5.1) Chloride Level 101 mmol/L (98-107) 99 mmol/L (98-107) Carbon Dioxide Level 27 mmol/L (21-32) 27 mmol/L (21-32) Anion Gap 7 (6-14) 8 (6-14) Blood Urea Nitrogen 22 mg/dL (8-26) 18 mg/dL (8-26) Creatinine 1.1 mg/dL (0.7-1.3) 1.2 mg/dL (0.7-1.3) Estimated GFR (Cockcroft-Gault) 70.9 64.1 BUN/Creatinine Ratio 20 (6-20) 15 (6-20) Glucose Level 112 mg/dL (70-99) 128 mg/dL (70-99) Calcium Level 8.3 mg/dL (8.5-10.1) 8.2 mg/dL (8.5-10.1) Total Bilirubin 1.0 mg/dL (0.2-1.0) 1.0 mg/dL (0.2-1.0) Aspartate Amino Transf (AST/SGOT) 37 U/L (15-37) 26 U/L (15-37) Alanine Aminotransferase (ALT/SGPT) 17 U/L (16-63) 19 U/L (16-63) Alkaline Phosphatase 46 U/L (46-116) 85 U/L (46-116) Total Protein 5.9 g/dL (6.4-8.2) 6.2 g/dL (6.4-8.2) Albumin 2.1 g/dL (3.4-5.0) 2.0 g/dL (3.4-5.0) Albumin/Globulin Ratio 0.6 (1.0-1.7) 0.5 (1.0-1.7) Laboratory Tests Test 06/04/19 09:40 White Blood Count 12.4 x10^3/uL (4.0-11.0) Red Blood Count 4.04 x10^6/uL (4.30-5.70) Hemoglobin 10.9 g/dL (13.0-17.5) Hematocrit 33.7 % (39.0-53.0) Mean Corpuscular Volume 83 fL (79-100) Mean Corpuscular Hemoglobin 27 pg (25-35) Mean Corpuscular Hemoglobin Concent 32 g/dL (31-37) Red Cell Distribution Width 14.9 % (11.5-14.5) Platelet Count 421 x10^3/uL (140-400) Sodium Level 134 mmol/L (136-145) Potassium Level 4.2 mmol/L (3.5-5.1) Chloride Level 99 mmol/L (98-107) Carbon Dioxide Level 27 mmol/L (21-32) Anion Gap 8 (6-14) Blood Urea Nitrogen 18 mg/dL (8-26) Creatinine 1.2 mg/dL (0.7-1.3) Estimated GFR (Cockcroft-Gault) 64.1 BUN/Creatinine Ratio 15 (6-20) Glucose Level 128 mg/dL (70-99) Calcium Level 8.2 mg/dL (8.5-10.1) Total Bilirubin 1.0 mg/dL (0.2-1.0) Aspartate Amino Transf (AST/SGOT) 26 U/L (15-37) Alanine Aminotransferase (ALT/SGPT) 19 U/L (16-63) Alkaline Phosphatase 85 U/L (46-116) Total Protein 6.2 g/dL (6.4-8.2) Albumin 2.0 g/dL (3.4-5.0) Albumin/Globulin Ratio 0.5 (1.0-1.7) Assessment/Plan s/p SBR start yaas KENNEDI BETANCOURT MD Jun 05, 2019 08:45
[2019-06-05] MEDS: ACETAMINOPHEN 325 MG TABLET. PO PRN ×2 (08:49→17:29)
[2019-06-05] MEDS: FLUCONAZOLE 400MG/200ML PREMIX 200 ML IV SCH (10:48)
[2019-06-05 11:00] VITALS: BP 115/49
--- NOTE | 2019-06-05 11:31 | PN ---
DATE: SUBJECTIVE: The patient is resting, slightly propped up in bed, in no apparent distress. He apparently has had bowel movement, passing gas. His NG tube was removed. PHYSICAL EXAMINATION: GENERAL: When I examined him, he looked well and was clearly in no apparent respiratory distress. VITAL SIGNS: His heart rate was 85, blood pressure was 127/74, temperature 98.1, respiratory rate was 16, and oxygen saturation was 94%. The rest of the exam is stable. LABORATORY DATA: Showed a serum sodium 134, potassium 4.2, chloride 99, bicarbonate 27, anion gap of 8, BUN 18, creatinine 1.2. White cell count was 12,400, hemoglobin 11, hematocrit 33, MCV 83, and platelet count 421,000. His peritoneal fluid culture and sensitivity is growing Proteus mirabilis and Escherichia coli, the result of sensitivity is still pending at the time of this dictation. ASSESSMENT: 1. Perforated small bowel, status post exploratory laparotomy, lysis of adhesions, small bowel resection, and appendectomy. 2. Diffuse peritonitis with the growth of Proteus mirabilis and Escherichia coli. 3. Crohn's disease. 4. Bronchial asthma/chronic obstructive pulmonary disease. 5. Nephrolithiasis. PLAN: Plan is to continue with IV antibiotic in the form of Zyvox and Zosyn as well as anidulafungin. His NG tube is out. He is now allowed to have clear liquid. We will discontinue the Burroughs catheter. SAMREEN GOODE MD DR: ACE/suzette JOB#: [id number] / [id number]
--- NOTE | 2019-06-05 11:50 | PDOC ---
Infectious Disease Note Subjective Subjective feeling so-so BM this morning spike fever of 101.1, yesterday, afebrile so far since. Tolerating clear liquids NGT out Denies N/V/D/SOA/chills ROS ROS per HPI Vital Sign Vital Signs Vital Signs Date Time Temp Pulse Resp B/P (MAP) Pulse Ox O2 Delivery O2 Flow Rate FiO2 06/05/19 08:00 Room Air 06/05/19 07:00 98.1 85 16 127/74 (91) 94 98.1 06/04/19 15:02 2.0 Physical Exam PHYSICAL EXAM GENERAL: Propped up in bed, alert in NAD HEENT: Oral cavity clear. NECK: Supple, no JVD. LUNGS: Clear bilaterally. No wheezing. HEART: S1, S2. No gallops or murmurs. ABDOMEN: Distended. Dressing in place, dry, not taken down. Bowel sounds hypoactive. EXTREMITIES: No edema, no cyanosis. DERMATOLOGIC: Warm and dry. Changes of vitiligo. No generalized rash noted. CENTRAL NERVOUS SYSTEM: Alert and oriented x 3, grossly nonfocal. PIV Labs Micro Abdominal fluid ANAEROBIC RES 1 PENDING AEROBIC CULT Preliminary Preliminary report AEROBIC RES 1 Preliminary Proteus mirabilis 1+ AEROBIC RES 2 Preliminary Escherichia coli Objective Assessment Perforated bowel, status post exploratory laparotomy for lysis of adhesions, small bowel resection and appendectomy, 06/02. Proteus and E. coli so far Crohn's disease, not on any treatment for a couple of years. Leukocytosis Lactic acidosis. Acute kidney injury. Plan Plan of Care Zyvox, Zosyn and fluconazole BC from 06/04 pending f/u cultures Supportive care Attending Co-Sign The patient was seen and interviewed as well as examined at the bedside. The chart was reviewed. The case was discussed. Agree with the plan of care. DAVIDA BARRETT APRN Jun 05, 2019 11:50 ZEKE BARROS MD Jun 05, 2019 14:09
[2019-06-05] MEDS ORDERED: HYDROmorphone STANDARD PCA 12 MG/30 ML SYRINGE. IV ONE (12:00)
[2019-06-05] MEDS: ENOXAPARIN 40 MG/0.4 ML SYRINGE. SQ SCH (13:22)
[2019-06-05] MEDS: IV NORMAL SALINE 1000ML BAG 1,000 ML IV SCH (13:22)
[2019-06-05 15:00] VITALS: BP 143/83
[2019-06-05] MEDS: PANTOPRAZOLE 40 MG TABLET.DR. PO SCH (17:28)
[2019-06-05] MEDS: CALCIUM CARBONATE 500 MG TAB.CHEW PO PRN (17:29)
[2019-06-05] MEDS: HYDROmorphone 12mg/30ml PCA 30 ML IV PRN (18:35)
[2019-06-05 19:00] VITALS: BP 137/71
[2019-06-05 19:17] LABS: HEMATOCRIT 32.8 % (39.0-53.0); HEMOGLOBIN 10.8 g/dL (13.0-17.5); RED BLOOD COUNT 3.96 x10^6/uL (4.30-5.70); RED CELL DISTRIBUTION WIDTH 14.8 % (11.5-14.5); WHITE BLOOD COUNT 15.8 x10^3/uL (4.0-11.0)
[2019-06-05] MEDS: LACTOBACILLUS RHAMNOSUS GG 1 CAPSULE. PO SCH (20:43)
[2019-06-05 23:00] VITALS: BP 126/79
[2019-06-06] MEDS: PIPERACILLIN/TAZOBACTAM 3.375 GM in IV NORMAL SALINE 50ML 50 ML IV SCH ×4 (00:07→16:39)
[2019-06-06] MEDS: AMINO AC 3%/ELECTROLYTE/GLYCER 1,000 ML IV SCH ×2 (01:06→13:21)
[2019-06-06] MEDS: ACETAMINOPHEN 325 MG TABLET. PO PRN (02:52)
[2019-06-06] MEDS: CALCIUM CARBONATE 500 MG TAB.CHEW PO PRN ×2 (02:55→14:32)
[2019-06-06 03:00] VITALS: BP 127/70
[2019-06-06] MEDS: SIMETHICONE 80 MG TAB.CHEW PO PRN ×2 (03:09→14:33)
[2019-06-06 05:40] LABS: HEMATOCRIT 32.3 % (39.0-53.0); HEMOGLOBIN 10.6 g/dL (13.0-17.5); RED BLOOD COUNT 3.87 x10^6/uL (4.30-5.70); RED CELL DISTRIBUTION WIDTH 15.1 % (11.5-14.5); WHITE BLOOD COUNT 16.9 x10^3/uL (4.0-11.0)
[2019-06-06 05:44] LABS: ALBUMIN 1.7 g/dL (3.4-5.0); ALBUMIN/GLOBULIN RATIO 0.4 (1.0-1.7); CALCIUM 8.1 mg/dL (8.5-10.1); CREATININE 1.1 mg/dL (0.7-1.3); GFR 70.9; POTASSIUM 4.1 mmol/L (3.5-5.1); TOTAL PROTEIN 6.1 g/dL (6.4-8.2)
[2019-06-06] MEDS: PANTOPRAZOLE 40 MG TABLET.DR. PO SCH (05:58)
[2019-06-06 07:00] VITALS: BP 119/62
[2019-06-06] MEDS: LACTOBACILLUS RHAMNOSUS GG 1 CAPSULE. PO SCH ×2 (09:03→21:14)
--- NOTE | 2019-06-06 09:21 | PN ---
DATE: 06/06/2019 SUBJECTIVE: The patient is resting slightly propped up in bed, in no apparent respiratory distress. He continues to complain of abdominal bloating and abdominal distention. However, denied any nausea or vomiting. He had a bowel movement and he is passing gas. He was started on a clear liquid diet last night. PHYSICAL EXAMINATION: GENERAL: When I examined him this morning, he looked well and was clearly in no apparent respiratory distress. No pallor, jaundice, cyanosis or thyromegaly. No jugular venous distention. No lower limb edema. VITAL SIGNS: His heart rate was 68, blood pressure was 119/62, temperature 98.4, respiratory rate was 18 and oxygen saturation was 94%. HEAD, EYES, EARS, NOSE AND THROAT: Normocephalic, atraumatic. NECK: Supple. CARDIAC: Normal first and second heart sounds. No gallop or murmur. CHEST: Clear to auscultation. No crepitation or rhonchi. ABDOMEN: Definitely distended; however, soft, nontender. Bowel sounds are audible. NEUROLOGICAL: He is awake. Grossly intact. His intake over the last 24 hours was 3050, output was 4500. LABORATORY DATA: As of this morning, his serum sodium was 134, potassium 4.1, chloride 100, bicarbonate 24, anion gap of 10, BUN 19, creatinine 1.1, estimated GFR was 71 mL per minute, his glucose 113, calcium was 8.1. Total bilirubin, AST and ALT were normal. Alkaline phosphatase slightly elevated, total protein was 6.1, albumin was 1.7. The peritoneal fluid culture and sensitivity showed growth of Proteus mirabilis and Escherichia coli, both sensitive to piperacillin and tazobactam. PLAN: Obviously, continue with IV fluid, continue with clear liquid diet, continue with pain management, continue with antibiotic, and start the process of physical and occupational therapy. SAMREEN GOODE MD DR: ACE/suzette JOB#: [id number] / [id number]
--- NOTE | 2019-06-06 10:24 | PDOC ---
Infectious Disease Note Subjective Subjective feeling good, no complaints ROS ROS no n/v/d/sob Vital Sign Vital Signs Vital Signs Date Time Temp Pulse Resp B/P (MAP) Pulse Ox O2 Delivery O2 Flow Rate FiO2 06/06/19 07:55 Room Air 06/06/19 07:00 98.4 68 18 119/62 (81) 94 98.4 Physical Exam PHYSICAL EXAM GENERAL: Propped up in bed, alert in NAD HEENT: Oral cavity clear. NECK: Supple, no JVD. LUNGS: Clear bilaterally. No wheezing. HEART: S1, S2. No gallops or murmurs. ABDOMEN: Distended. Dressing in place, dry, not taken down. Bowel sounds hypoactive. EXTREMITIES: No edema, no cyanosis. DERMATOLOGIC: Warm and dry. Changes of vitiligo. No generalized rash noted. CENTRAL NERVOUS SYSTEM: Alert and oriented x 3, grossly nonfocal. PIV Labs Lab Laboratory Tests Test 06/05/19 19:00 06/06/19 03:50 White Blood Count 15.8 x10^3/uL (4.0-11.0) 16.9 x10^3/uL (4.0-11.0) Red Blood Count 3.96 x10^6/uL (4.30-5.70) 3.87 x10^6/uL (4.30-5.70) Hemoglobin 10.8 g/dL (13.0-17.5) 10.6 g/dL (13.0-17.5) Hematocrit 32.8 % (39.0-53.0) 32.3 % (39.0-53.0) Mean Corpuscular Volume 83 fL (79-100) 84 fL (79-100) Mean Corpuscular Hemoglobin 27 pg (25-35) 27 pg (25-35) Mean Corpuscular Hemoglobin Concent 33 g/dL (31-37) 33 g/dL (31-37) Red Cell Distribution Width 14.8 % (11.5-14.5) 15.1 % (11.5-14.5) Platelet Count 391 x10^3/uL (140-400) 451 x10^3/uL (140-400) Sodium Level 134 mmol/L (136-145) Potassium Level 4.1 mmol/L (3.5-5.1) Chloride Level 100 mmol/L (98-107) Carbon Dioxide Level 24 mmol/L (21-32) Anion Gap 10 (6-14) Blood Urea Nitrogen 19 mg/dL (8-26) Creatinine 1.1 mg/dL (0.7-1.3) Estimated GFR (Cockcroft-Gault) 70.9 BUN/Creatinine Ratio 17 (6-20) Glucose Level 113 mg/dL (70-99) Calcium Level 8.1 mg/dL (8.5-10.1) Total Bilirubin 1.0 mg/dL (0.2-1.0) Aspartate Amino Transf (AST/SGOT) 31 U/L (15-37) Alanine Aminotransferase (ALT/SGPT) 24 U/L (16-63) Alkaline Phosphatase 209 U/L (46-116) Total Protein 6.1 g/dL (6.4-8.2) Albumin 1.7 g/dL (3.4-5.0) Albumin/Globulin Ratio 0.4 (1.0-1.7) Micro Microbiology 06/02/19 Anaerobic/Aerobic Culture, Resulted Pending 06/02/19 Anaerobic Culture Result 1 ([facility]), Resulted Pending 06/02/19 Aerobic Culture - Final, Resulted 06/02/19 Aerobic Culture Result 1 ([facility]) - Final, Resulted 06/02/19 Aerobic Culture Result 2 ([facility]) - Final, Resulted 06/02/19 Antimicrobic Susceptibility - Final, Resulted 06/02/19 Gram Stain - Final, Resulted 06/02/19 Gram Stain Result 1 ([facility]) - Final, Resulted 06/02/19 Gram Stain Result 2 ([facility]) - Final, Resulted Objective Assessment Perforated bowel, status post exploratory laparotomy for lysis of adhesions, small bowel resection and appendectomy, 06/02. Proteus and E. coli so far Crohn's disease, not on any treatment for a couple of years. Leukocytosis Lactic acidosis. Acute kidney injury. Plan Plan of Care Zyvox, Zosyn and fluconazole ,,, soon to change to po BC from 06/04 pending f/u cultures Supportive care ZEKE BARROS MD Jun 06, 2019 10:24
--- NOTE | 2019-06-06 10:29 | PDOC ---
Subjective: Subjective: "Still kickin." Had some gas pain last night, took a gas pill. Passing flatus and stool, tolerating clear liquids. Objective: Vital Signs: Vital Signs Date Time Temp Pulse Resp B/P (MAP) Pulse Ox O2 Delivery O2 Flow Rate FiO2 06/06/19 07:55 Room Air 06/06/19 07:00 98.4 68 18 119/62 (81) 94 98.4 Labs: Laboratory Tests Test 06/05/19 19:00 06/06/19 03:50 White Blood Count 15.8 x10^3/uL 16.9 x10^3/uL Red Blood Count 3.96 x10^6/uL 3.87 x10^6/uL Hemoglobin 10.8 g/dL 10.6 g/dL Hematocrit 32.8 % 32.3 % Mean Corpuscular Volume 83 fL 84 fL Mean Corpuscular Hemoglobin 27 pg 27 pg Mean Corpuscular Hemoglobin Concent 33 g/dL 33 g/dL Red Cell Distribution Width 14.8 % 15.1 % Platelet Count 391 x10^3/uL 451 x10^3/uL Sodium Level 134 mmol/L Potassium Level 4.1 mmol/L Chloride Level 100 mmol/L Carbon Dioxide Level 24 mmol/L Anion Gap 10 Blood Urea Nitrogen 19 mg/dL Creatinine 1.1 mg/dL Estimated GFR (Cockcroft-Gault) 70.9 BUN/Creatinine Ratio 17 Glucose Level 113 mg/dL Calcium Level 8.1 mg/dL Total Bilirubin 1.0 mg/dL Aspartate Amino Transf (AST/SGOT) 31 U/L Alanine Aminotransferase (ALT/SGPT) 24 U/L Alkaline Phosphatase 209 U/L Total Protein 6.1 g/dL Albumin 1.7 g/dL Albumin/Globulin Ratio 0.4 Diagnosis: A. Appendix, appendectomy: - Serosal acute inflammation. - Fibrofatty obliteration of distal appendiceal lumen. B. Segment of small intestine and attached mesentery, small bowel segmental resection: - Transmural active chronic enteritis (Crohn's disease) with areas of stricture, mucosal ulceration with focal fissuring and kris-enteric abscesses and reactive fibrosis, and serosal acute inflammation. - See comment. Comment: The small bowel segment is unoriented. One of the ends shows absent transmural active chronic inflammation and serosal acute inflammation. The opposite end does show focal transmural active chronic inflammation with focal mucosal ulceration. There is no dysplasia or evidence of malignancy. ORDERED: ANAER/AERADAM/GS COMMENTS: ABDDOMINAL ASCITES Procedure Result ANAEROBIC-AEROBIC CULTURE PENDING ANAEROBIC RES 1 PENDING AEROBIC CULT Final Preliminary report Final report AEROBIC RES 1 Final Proteus mirabilis 1+ AEROBIC RES 2 Final Escherichia coli 1+ ANTIMICROBIAL SUSCEPTIBILITY Final Comment S = Susceptible; I = Intermediate; R = Resistant P = Positive; N = Negative MICS are expressed in micrograms per mL Antibiotic RSLT#1 RSLT#2 RSLT#3 RSLT#4 Amoxicillin/Clavulanic Acid S =4 S =4 Ampicillin R>=32 S =8 Cefazolin R>=64 Cefepime S<=0.12 S<=0.12 Ceftriaxone S<=0.25 S<=0.25 Cefuroxime R>=64 S =4 Ciprofloxacin S<=0.25 S<=0.25 Ertapenem S<=0.12 S<=0.12 Gentamicin S<=1 S<=1 Imipenem S<=0.25 Levofloxacin S<=0.12 S<=0.12 Meropenem S<=0.25 S<=0.25 Piperacillin/Tazobactam S<=4 S<=4 ANTIMICROBIAL SUSCEPTIBILITY Final (continued) Tetracycline R =R S<=1 Tobramycin S<=1 S<=1 Trimethoprim/Sulfa S<=20 S<=20 GRAM STAIN Final Final report GRAM STAIN RES 1 Final Comment No white blood cells seen. GRAM STAIN RES 2 Final No organisms seen PE: GEN: NAD LUNGS: room air ABD: soft, dressing intact NEURO/PSYCH: A & O 3 A/P: Perforated SB w/ h/o Crohn's, s/p exp lap, GAVIN, SBR, and appendectomy 06/02/19 - path as above -- Improving. Continue per surgery and ID. CRESCENCIO CHANDRA Jun 06, 2019 10:29
[2019-06-06] MEDS: FLUCONAZOLE 400MG/200ML PREMIX 200 ML IV SCH (10:39)
[2019-06-06 11:05] VITALS: BP 132/80
--- NOTE | 2019-06-06 11:21 | PDOC ---
CHAPARRITA WILKINSON SECURITIES ADVISER 06/06/19 1121: SURGICAL PROGRESS NOTE Subjective nausea yesterday, none today bloating a little flatus today Vital Signs Vital Signs Date Time Temp Pulse Resp B/P (MAP) Pulse Ox O2 Delivery O2 Flow Rate FiO2 06/06/19 11:05 98.5 86 18 132/80 (97) 94 Room Air 98.5 I&O Intake and Output 06/06/19 07:00 Intake Total 3150 ml Output Total 1450 ml Balance 1700 ml Intake Oral 740 ml IV Total 2410 ml Output Urine Total 1450 ml # Voids 4 # Bowel Movements 4 General: Alert, Oriented X3, Cooperative Abdomen: Soft, Other (distended, incision c/d/i, no erythema ) Labs Laboratory Tests Test 06/05/19 19:00 06/06/19 03:50 White Blood Count 15.8 x10^3/uL (4.0-11.0) 16.9 x10^3/uL (4.0-11.0) Red Blood Count 3.96 x10^6/uL (4.30-5.70) 3.87 x10^6/uL (4.30-5.70) Hemoglobin 10.8 g/dL (13.0-17.5) 10.6 g/dL (13.0-17.5) Hematocrit 32.8 % (39.0-53.0) 32.3 % (39.0-53.0) Mean Corpuscular Volume 83 fL (79-100) 84 fL (79-100) Mean Corpuscular Hemoglobin 27 pg (25-35) 27 pg (25-35) Mean Corpuscular Hemoglobin Concent 33 g/dL (31-37) 33 g/dL (31-37) Red Cell Distribution Width 14.8 % (11.5-14.5) 15.1 % (11.5-14.5) Platelet Count 391 x10^3/uL (140-400) 451 x10^3/uL (140-400) Sodium Level 134 mmol/L (136-145) Potassium Level 4.1 mmol/L (3.5-5.1) Chloride Level 100 mmol/L (98-107) Carbon Dioxide Level 24 mmol/L (21-32) Anion Gap 10 (6-14) Blood Urea Nitrogen 19 mg/dL (8-26) Creatinine 1.1 mg/dL (0.7-1.3) Estimated GFR (Cockcroft-Gault) 70.9 BUN/Creatinine Ratio 17 (6-20) Glucose Level 113 mg/dL (70-99) Calcium Level 8.1 mg/dL (8.5-10.1) Total Bilirubin 1.0 mg/dL (0.2-1.0) Aspartate Amino Transf (AST/SGOT) 31 U/L (15-37) Alanine Aminotransferase (ALT/SGPT) 24 U/L (16-63) Alkaline Phosphatase 209 U/L (46-116) Total Protein 6.1 g/dL (6.4-8.2) Albumin 1.7 g/dL (3.4-5.0) Albumin/Globulin Ratio 0.4 (1.0-1.7) Laboratory Tests Test 06/05/19 19:00 06/06/19 03:50 White Blood Count 15.8 x10^3/uL (4.0-11.0) 16.9 x10^3/uL (4.0-11.0) Red Blood Count 3.96 x10^6/uL (4.30-5.70) 3.87 x10^6/uL (4.30-5.70) Hemoglobin 10.8 g/dL (13.0-17.5) 10.6 g/dL (13.0-17.5) Hematocrit 32.8 % (39.0-53.0) 32.3 % (39.0-53.0) Mean Corpuscular Volume 83 fL (79-100) 84 fL (79-100) Mean Corpuscular Hemoglobin 27 pg (25-35) 27 pg (25-35) Mean Corpuscular Hemoglobin Concent 33 g/dL (31-37) 33 g/dL (31-37) Red Cell Distribution Width 14.8 % (11.5-14.5) 15.1 % (11.5-14.5) Platelet Count 391 x10^3/uL (140-400) 451 x10^3/uL (140-400) Sodium Level 134 mmol/L (136-145) Potassium Level 4.1 mmol/L (3.5-5.1) Chloride Level 100 mmol/L (98-107) Carbon Dioxide Level 24 mmol/L (21-32) Anion Gap 10 (6-14) Blood Urea Nitrogen 19 mg/dL (8-26) Creatinine 1.1 mg/dL (0.7-1.3) Estimated GFR (Cockcroft-Gault) 70.9 BUN/Creatinine Ratio 17 (6-20) Glucose Level 113 mg/dL (70-99) Calcium Level 8.1 mg/dL (8.5-10.1) Total Bilirubin 1.0 mg/dL (0.2-1.0) Aspartate Amino Transf (AST/SGOT) 31 U/L (15-37) Alanine Aminotransferase (ALT/SGPT) 24 U/L (16-63) Alkaline Phosphatase 209 U/L (46-116) Total Protein 6.1 g/dL (6.4-8.2) Albumin 1.7 g/dL (3.4-5.0) Albumin/Globulin Ratio 0.4 (1.0-1.7) Assessment/Plan await improved bowel fx, sips liquids only, increase activity KENNEDI BETANCOURT MD 06/06/19 1437: SURGICAL PROGRESS NOTE Assessment/Plan pt seen agree with above will stop CONTAINER COORDINATOR, switch to po meds CHAPARRITA WILKINSON APRN Jun 06, 2019 11:21 KENNEDI BETANCOURT MD Jun 06, 2019 14:37
--- NOTE | 2019-06-06 11:31 | NUR ---
SW following. Discussed with RN, pt is from home with spouse. Currently with zyvox, zosyn, fluconazole, pain pump, clear liquid diet. RN advised no SW needs at this time. SW will continue to follow.
[2019-06-06] MEDS ORDERED: HYDROmorphone 2 MG/ML VIAL IVP PRN (12:15)
[2019-06-06] MEDS: ENOXAPARIN 40 MG/0.4 ML SYRINGE. SQ SCH (13:26)
[2019-06-06] MEDS: oxyCODONE/APAP 7.5/325 1 TAB TABLET PO PRN ×2 (14:33→21:14)
[2019-06-06 15:15] VITALS: BP 132/80
[2019-06-06 19:00] VITALS: BP 140/86
[2019-06-06 23:00] VITALS: BP 134/80
[2019-06-07] MEDS: PIPERACILLIN/TAZOBACTAM 3.375 GM in IV NORMAL SALINE 50ML 50 ML IV SCH ×2 (00:31→05:54)
[2019-06-07] MEDS: AMINO AC 3%/ELECTROLYTE/GLYCER 1,000 ML IV SCH ×2 (01:55→13:49)
[2019-06-07 03:00] VITALS: BP 129/81
[2019-06-07 07:00] VITALS: BP 117/73
[2019-06-07] MEDS: PANTOPRAZOLE 40 MG TABLET.DR. PO SCH (08:50)
[2019-06-07] MEDS: LACTOBACILLUS RHAMNOSUS GG 1 CAPSULE. PO SCH ×2 (08:50→20:58)
[2019-06-07] MEDS: oxyCODONE/APAP 7.5/325 1 TAB TABLET PO PRN ×3 (08:50→20:16)
--- NOTE | 2019-06-07 09:52 | PDOC ---
Infectious Disease Note Subjective Subjective feeling good, occasional abd cramp ROS ROS no n/v/d/sob Vital Sign Vital Signs Vital Signs Date Time Temp Pulse Resp B/P (MAP) Pulse Ox O2 Delivery O2 Flow Rate FiO2 06/07/19 08:50 95 Room Air 06/07/19 07:00 98.4 77 18 117/73 (88) 98.4 Physical Exam PHYSICAL EXAM GENERAL: Propped up in bed, alert in NAD HEENT: Oral cavity clear. NECK: Supple, no JVD. LUNGS: Clear bilaterally. No wheezing. HEART: S1, S2. No gallops or murmurs. ABDOMEN: Distended. Dressing in place, dry, not taken down. Bowel sounds hypoactive. EXTREMITIES: No edema, no cyanosis. DERMATOLOGIC: Warm and dry. Changes of vitiligo. No generalized rash noted. CENTRAL NERVOUS SYSTEM: Alert and oriented x 3, grossly nonfocal. PIV Labs Micro Objective Assessment Perforated bowel, status post exploratory laparotomy for lysis of adhesions, small bowel resection and appendectomy, 1/. Proteus and E. coli so far Crohn's disease, not on any treatment for a couple of years. Leukocytosis Lactic acidosis. Acute kidney injury. Plan Plan of Care change antibiotics to po augmentin f/u cultures Supportive care ZEKE BARROS MD Jun 07, 2019 09:51
--- NOTE | 2019-06-07 10:01 | PDOC ---
SURGICAL PROGRESS NOTE Subjective had some stool still bloated, although better ambulating Vital Signs Vital Signs Date Time Temp Pulse Resp B/P (MAP) Pulse Ox O2 Delivery O2 Flow Rate FiO2 06/07/19 09:59 95 Room Air 06/07/19 07:00 98.4 77 18 117/73 (88) 98.4 I&O Intake and Output 06/07/19 06:59 Intake Total 840 ml Balance 840 ml Intake Oral 840 ml # Voids 4 # Bowel Movements 2 General: Alert, Oriented X3, Cooperative Abdomen: Soft, Other (distended, incision c/d/i, no erythema ) Labs Laboratory Tests Test 06/05/19 19:00 06/06/19 03:50 White Blood Count 15.8 x10^3/uL (4.0-11.0) 16.9 x10^3/uL (4.0-11.0) Red Blood Count 3.96 x10^6/uL (4.30-5.70) 3.87 x10^6/uL (4.30-5.70) Hemoglobin 10.8 g/dL (13.0-17.5) 10.6 g/dL (13.0-17.5) Hematocrit 32.8 % (39.0-53.0) 32.3 % (39.0-53.0) Mean Corpuscular Volume 83 fL (79-100) 84 fL (79-100) Mean Corpuscular Hemoglobin 27 pg (25-35) 27 pg (25-35) Mean Corpuscular Hemoglobin Concent 33 g/dL (31-37) 33 g/dL (31-37) Red Cell Distribution Width 14.8 % (11.5-14.5) 15.1 % (11.5-14.5) Platelet Count 391 x10^3/uL (140-400) 451 x10^3/uL (140-400) Sodium Level 134 mmol/L (136-145) Potassium Level 4.1 mmol/L (3.5-5.1) Chloride Level 100 mmol/L (98-107) Carbon Dioxide Level 24 mmol/L (21-32) Anion Gap 10 (6-14) Blood Urea Nitrogen 19 mg/dL (8-26) Creatinine 1.1 mg/dL (0.7-1.3) Estimated GFR (Cockcroft-Gault) 70.9 BUN/Creatinine Ratio 17 (6-20) Glucose Level 113 mg/dL (70-99) Calcium Level 8.1 mg/dL (8.5-10.1) Total Bilirubin 1.0 mg/dL (0.2-1.0) Aspartate Amino Transf (AST/SGOT) 31 U/L (15-37) Alanine Aminotransferase (ALT/SGPT) 24 U/L (16-63) Alkaline Phosphatase 209 U/L (46-116) Total Protein 6.1 g/dL (6.4-8.2) Albumin 1.7 g/dL (3.4-5.0) Albumin/Globulin Ratio 0.4 (1.0-1.7) Assessment/Plan clears, await better bowel function CHAPARRITA WILKINSON MATERIALS TECHNICIAN Jun 07, 2019 10:01
--- NOTE | 2019-06-07 10:49 | PDOC ---
Subjective: Subjective: Doesn't like jello but taking sips of chicken broth. Liquids stools. Some abd pain. Hangin in there. Objective: Vital Signs: Vital Signs Date Time Temp Pulse Resp B/P (MAP) Pulse Ox O2 Delivery O2 Flow Rate FiO2 06/07/19 09:59 95 Room Air 06/07/19 07:00 98.4 77 18 117/73 (88) 98.4 Labs: BLOOD CULTURE Preliminary NO GROWTH AFTER 1 DAY ORDERED: ANAER/AEROB/GS COMMENTS: ABDDOMINAL ASCITES ANAEROBIC-AEROBIC CULTURE Final Final report ANAEROBIC RES 1 Final Comment No anaerobic growth in 72 hours. AEROBIC CULT Final Preliminary report Final report AEROBIC RES 1 Final Proteus mirabilis 1+ AEROBIC RES 2 Final Escherichia coli 1+ ANTIMICROBIAL SUSCEPTIBILITY Final Comment ANTIMICROBIAL SUSCEPTIBILITY Final (continued) Meropenem S<=0.25 S<=0.25 Piperacillin/Tazobactam S<=4 S<=4 Tetracycline R =R S<=1 Tobramycin S<=1 S<=1 Trimethoprim/Sulfa S<=20 S<=20 GRAM STAIN Final Final report GRAM STAIN RES 1 Final Comment No white blood cells seen. GRAM STAIN RES 2 Final No organisms seen Performed at: [facility] - [facility] [id number], [place], [place] [id number] [employer]: OTTO Hartman MD, Phone: [phone] PE: GEN: NAD LUNGS: CTAB HEART: RRR ABD: soft, quiet NEURO/PSYCH: A & O 3 A/P: Perforated SB w/ h/o Crohn's, s/p exp lap, GAVIN, SBR, and appendectomy 06/02/19 -- Continue per surgery and ID. CRESCENCIO CHANDRA Jun 07, 2019 10:49
[2019-06-07 11:00] VITALS: BP 126/83
[2019-06-07] MEDS: ENOXAPARIN 40 MG/0.4 ML SYRINGE. SQ SCH (13:48)
--- NOTE | 2019-06-07 14:12 | PN ---
DATE: 06/07/2019 SUBJECTIVE: The patient is resting, slightly propped up in bed, no apparent distress. On questioning him, he apparently had had multiple bowel movements. He is passing gas, although his abdomen continue to be bloated. Denied any nausea, vomiting, tolerating his clear. He is now on sips of liquids only. PHYSICAL EXAMINATION: GENERAL: When I examined him this morning, he looked well and was clearly in no apparent respiratory distress. No pallor, jaundice, cyanosis or thyromegaly. No jugular venous distention. No lower limb edema. VITAL SIGNS: His heart rate was 77, blood pressure 117/73, temperature 98.4, respiratory rate was 18 and oxygen saturation was 95%. ABDOMEN: Distended, soft with audible bowel sounds. His intake over the last 24 hours was 3150, output was 1450. LABORATORY DATA: He has no lab work done this morning. As of yesterday, his white count was 16,900, hemoglobin 10.6, hematocrit 32, MCV 84 and platelet count of 155,000. His chemistry showed a serum sodium 134, potassium 4.1, chloride 100, bicarbonate 24, anion gap of 10, BUN 19, creatinine 1.1, estimated GFR was 71 mL per minute, his glucose 113, calcium was 8.1. Total bilirubin, AST, ALT were normal. Alkaline phosphatase is rising. ASSESSMENT: 1. Perforated small bowel, status post exploratory laparotomy, lysis of adhesions, small bowel resection and appendectomy. 2. Diffuse peritonitis with a growth of Proteus mirabilis and Escherichia coli. 3. Crohn's disease. 4. Bronchial asthma/chronic obstructive pulmonary disease. 5. Nephrolithiasis. 6. Postoperative paralytic ileus. PLAN: To continue with IV antibiotic in the form of Zyvox and Zosyn. His NG tube is out. He is now allowed sips of water, discontinued his Burroughs catheter, has been up and about. He is having bowel movement and passed gas. SAMREEN GOODE MD DR: ACE/suzette JOB#: [id number] / [id number]
[2019-06-07 15:00] VITALS: BP 116/73
[2019-06-07 19:40] VITALS: BP 136/74
[2019-06-07] MEDS: CIPROFLOXACIN HCL 250 MG TABLET. PO SCH (20:58)
[2019-06-07] MEDS: AMOXICILLIN/K CLAV 875/125MG TABLET. PO SCH (20:58)
[2019-06-07 23:55] VITALS: BP 127/73
[2019-06-08 03:20] VITALS: BP 118/70
[2019-06-08] MEDS: AMINO AC 3%/ELECTROLYTE/GLYCER 1,000 ML IV SCH (04:00)
[2019-06-08 04:53] LABS: HEMATOCRIT 32.8 % (39.0-53.0); HEMOGLOBIN 10.6 g/dL (13.0-17.5); RED BLOOD COUNT 3.92 x10^6/uL (4.30-5.70); RED CELL DISTRIBUTION WIDTH 15.2 % (11.5-14.5); WHITE BLOOD COUNT 11.3 x10^3/uL (4.0-11.0)
[2019-06-08 05:18] LABS: ALBUMIN 1.9 g/dL (3.4-5.0); ALBUMIN/GLOBULIN RATIO 0.4 (1.0-1.7); CALCIUM 8.2 mg/dL (8.5-10.1); GFR 79.1; POTASSIUM 4.2 mmol/L (3.5-5.1); TOTAL BILIRUBIN 0.5 mg/dL (0.2-1.0); TOTAL PROTEIN 6.2 g/dL (6.4-8.2)
[2019-06-08] MEDS: oxyCODONE/APAP 7.5/325 1 TAB TABLET PO PRN ×3 (06:08→20:28)
[2019-06-08 07:00] VITALS: BP 128/76
--- NOTE | 2019-06-08 08:58 | PDOC ---
Infectious Disease Note Subjective Subjective feeling good, ROS ROS no n/v/abd pain liquid stool Vital Sign Vital Signs Vital Signs Date Time Temp Pulse Resp B/P (MAP) Pulse Ox O2 Delivery O2 Flow Rate FiO2 06/08/19 07:00 98.3 79 18 128/76 (93) 96 Room Air 98.3 Physical Exam PHYSICAL EXAM GENERAL: Propped up in bed, alert in NAD HEENT: Oral cavity clear. NECK: Supple, no JVD. LUNGS: Clear bilaterally. No wheezing. HEART: S1, S2. No gallops or murmurs. ABDOMEN: Distended. Dressing in place, dry, not taken down. Bowel sounds hypoactive. EXTREMITIES: No edema, no cyanosis. DERMATOLOGIC: Warm and dry. Changes of vitiligo. No generalized rash noted. CENTRAL NERVOUS SYSTEM: Alert and oriented x 3, grossly nonfocal. PIV Labs Lab Laboratory Tests Test 06/08/19 04:00 White Blood Count 11.3 x10^3/uL (4.0-11.0) Red Blood Count 3.92 x10^6/uL (4.30-5.70) Hemoglobin 10.6 g/dL (13.0-17.5) Hematocrit 32.8 % (39.0-53.0) Mean Corpuscular Volume 84 fL (79-100) Mean Corpuscular Hemoglobin 27 pg (25-35) Mean Corpuscular Hemoglobin Concent 32 g/dL (31-37) Red Cell Distribution Width 15.2 % (11.5-14.5) Platelet Count 480 x10^3/uL (140-400) Sodium Level 136 mmol/L (136-145) Potassium Level 4.2 mmol/L (3.5-5.1) Chloride Level 102 mmol/L (98-107) Carbon Dioxide Level 26 mmol/L (21-32) Anion Gap 8 (6-14) Blood Urea Nitrogen 17 mg/dL (8-26) Creatinine 1.0 mg/dL (0.7-1.3) Estimated GFR (Cockcroft-Gault) 79.1 BUN/Creatinine Ratio 17 (6-20) Glucose Level 106 mg/dL (70-99) Calcium Level 8.2 mg/dL (8.5-10.1) Total Bilirubin 0.5 mg/dL (0.2-1.0) Aspartate Amino Transf (AST/SGOT) 43 U/L (15-37) Alanine Aminotransferase (ALT/SGPT) 29 U/L (16-63) Alkaline Phosphatase 234 U/L (46-116) Total Protein 6.2 g/dL (6.4-8.2) Albumin 1.9 g/dL (3.4-5.0) Albumin/Globulin Ratio 0.4 (1.0-1.7) Micro Objective Assessment Perforated bowel, status post exploratory laparotomy for lysis of adhesions, small bowel resection and appendectomy, /. Proteus and E. coli so far Crohn's disease, not on any treatment for a couple of years. Leukocytosis Lactic acidosis. Acute kidney injury. Plan Plan of Care change antibiotics to po augmentin and cipro, for 5 more days f/u cultures Supportive care ZEKE BARROS MD Jun 08, 2019 08:58
[2019-06-08] MEDS: AMOXICILLIN/K CLAV 875/125MG TABLET. PO SCH ×2 (09:47→20:27)
[2019-06-08] MEDS: LACTOBACILLUS RHAMNOSUS GG 1 CAPSULE. PO SCH ×2 (09:47→20:27)
[2019-06-08] MEDS: PANTOPRAZOLE 40 MG TABLET.DR. PO SCH (09:47)
[2019-06-08] MEDS: CIPROFLOXACIN HCL 250 MG TABLET. PO SCH ×2 (09:53→20:27)
--- NOTE | 2019-06-08 10:14 | PN ---
DATE: 06/08/2019 SUBJECTIVE: The patient is sitting up at the edge of the bed comfortably, no apparent distress. Denied any abdominal pain. No nausea, no vomiting. Had multiple bowel movements. Passing gas. He is on a full liquid diet. PHYSICAL EXAMINATION: GENERAL: When I examined him, he looked well and was clearly in no apparent respiratory distress, pale. No jaundice, cyanosis or thyromegaly. No jugular venous distention. No lower limb edema. VITAL SIGNS: His heart rate was 79, blood pressure was 128/76, temperature 98.3, respiratory rate was 18 and oxygen saturation was 96%. HEAD, EYES, EARS, NOSE AND THROAT: Normocephalic, atraumatic. NECK: Supple. HEART: Normal first and second heart sounds. No gallop or murmur. CHEST: Clear to auscultation. No crepitation or rhonchi. ABDOMEN: Distended, soft. Midline surgical incision covered with dressing. There is no tenderness. No guarding or rigidity. Bowel sounds are normal. NEUROLOGICAL: He was grossly intact. His intake over the last 24 hours was 840, no output was recorded. LABORATORY DATA: As of this morning, his white cell count is down to 11,300, hemoglobin 10.6, hematocrit 33, MCV 84 and platelet count 580,000. His chemistry showed a serum sodium of 136, potassium 4.2, chloride 102, bicarbonate 26, anion gap of 8, BUN 17, creatinine 1, estimated GFR was 79 mL per minute, his glucose was 106, calcium was 8.2. Total bilirubin, AST and ALT normal. Alkaline phosphatase is rising, total protein was 6.2, albumin was 1.9. ASSESSMENT: 1. Perforated small bowel, status post exploratory laparotomy, lysis of adhesions, small bowel resection, appendectomy. 2. Diffuse peritonitis with growth of Proteus mirabilis and Escherichia coli. 3. Crohn's disease. 4. Bronchial asthma/chronic obstructive pulmonary disease. 5. Nephrolithiasis. 6. Postoperative paralytic ileus, improving. PLAN: To continue with IV antibiotic. He is actually now on Cipro and amoxicillin. Continue with pain management. Once he is able to tolerate a regular diet, we will discharge him home. SAMREEN GOODE MD DR: ACE/suzette JOB#: [id number] / [id number]
[2019-06-08 11:00] VITALS: BP 135/76
[2019-06-08] MEDS: ENOXAPARIN 40 MG/0.4 ML SYRINGE. SQ SCH (12:42)
--- NOTE | 2019-06-08 13:03 | PDOC ---
SURGICAL PROGRESS NOTE Subjective Pt doing well, yesi clears, passing flatus and stools Vital Signs Vital Signs Date Time Temp Pulse Resp B/P (MAP) Pulse Ox O2 Delivery O2 Flow Rate FiO2 06/08/19 12:42 18 Room Air 06/08/19 11:00 98.9 91 135/76 (95) 96 98.9 I&O Intake and Output 06/08/19 07:00 Intake Total 650 ml Balance 650 ml Intake Oral 650 ml # Voids 3 # Bowel Movements 3 General: Alert, Oriented X3, Cooperative, No acute distress Abdomen: Soft, No tenderness Labs Laboratory Tests Test 06/08/19 04:00 White Blood Count 11.3 x10^3/uL (4.0-11.0) Red Blood Count 3.92 x10^6/uL (4.30-5.70) Hemoglobin 10.6 g/dL (13.0-17.5) Hematocrit 32.8 % (39.0-53.0) Mean Corpuscular Volume 84 fL (79-100) Mean Corpuscular Hemoglobin 27 pg (25-35) Mean Corpuscular Hemoglobin Concent 32 g/dL (31-37) Red Cell Distribution Width 15.2 % (11.5-14.5) Platelet Count 480 x10^3/uL (140-400) Sodium Level 136 mmol/L (136-145) Potassium Level 4.2 mmol/L (3.5-5.1) Chloride Level 102 mmol/L (98-107) Carbon Dioxide Level 26 mmol/L (21-32) Anion Gap 8 (6-14) Blood Urea Nitrogen 17 mg/dL (8-26) Creatinine 1.0 mg/dL (0.7-1.3) Estimated GFR (Cockcroft-Gault) 79.1 BUN/Creatinine Ratio 17 (6-20) Glucose Level 106 mg/dL (70-99) Calcium Level 8.2 mg/dL (8.5-10.1) Total Bilirubin 0.5 mg/dL (0.2-1.0) Aspartate Amino Transf (AST/SGOT) 43 U/L (15-37) Alanine Aminotransferase (ALT/SGPT) 29 U/L (16-63) Alkaline Phosphatase 234 U/L (46-116) Total Protein 6.2 g/dL (6.4-8.2) Albumin 1.9 g/dL (3.4-5.0) Albumin/Globulin Ratio 0.4 (1.0-1.7) Laboratory Tests Test 06/08/19 04:00 White Blood Count 11.3 x10^3/uL (4.0-11.0) Red Blood Count 3.92 x10^6/uL (4.30-5.70) Hemoglobin 10.6 g/dL (13.0-17.5) Hematocrit 32.8 % (39.0-53.0) Mean Corpuscular Volume 84 fL (79-100) Mean Corpuscular Hemoglobin 27 pg (25-35) Mean Corpuscular Hemoglobin Concent 32 g/dL (31-37) Red Cell Distribution Width 15.2 % (11.5-14.5) Platelet Count 480 x10^3/uL (140-400) Sodium Level 136 mmol/L (136-145) Potassium Level 4.2 mmol/L (3.5-5.1) Chloride Level 102 mmol/L (98-107) Carbon Dioxide Level 26 mmol/L (21-32) Anion Gap 8 (6-14) Blood Urea Nitrogen 17 mg/dL (8-26) Creatinine 1.0 mg/dL (0.7-1.3) Estimated GFR (Cockcroft-Gault) 79.1 BUN/Creatinine Ratio 17 (6-20) Glucose Level 106 mg/dL (70-99) Calcium Level 8.2 mg/dL (8.5-10.1) Total Bilirubin 0.5 mg/dL (0.2-1.0) Aspartate Amino Transf (AST/SGOT) 43 U/L (15-37) Alanine Aminotransferase (ALT/SGPT) 29 U/L (16-63) Alkaline Phosphatase 234 U/L (46-116) Total Protein 6.2 g/dL (6.4-8.2) Albumin 1.9 g/dL (3.4-5.0) Albumin/Globulin Ratio 0.4 (1.0-1.7) Problem List s/p SBR TAYLOR ORTEGA MD Jun 08, 2019 13:03
--- NOTE | 2019-06-08 13:19 | PDOC ---
Subjective: Subjective: Glad to be eating mashed potatoes, pain around a 5, stooling. Objective: Vital Signs: Vital Signs Date Time Temp Pulse Resp B/P (MAP) Pulse Ox O2 Delivery O2 Flow Rate FiO2 06/08/19 12:42 18 Room Air 06/08/19 11:00 98.9 91 135/76 (95) 96 98.9 Labs: Laboratory Tests Test 06/08/19 04:00 White Blood Count 11.3 x10^3/uL Red Blood Count 3.92 x10^6/uL Hemoglobin 10.6 g/dL Hematocrit 32.8 % Mean Corpuscular Volume 84 fL Mean Corpuscular Hemoglobin 27 pg Mean Corpuscular Hemoglobin Concent 32 g/dL Red Cell Distribution Width 15.2 % Platelet Count 480 x10^3/uL Sodium Level 136 mmol/L Potassium Level 4.2 mmol/L Chloride Level 102 mmol/L Carbon Dioxide Level 26 mmol/L Anion Gap 8 Blood Urea Nitrogen 17 mg/dL Creatinine 1.0 mg/dL Estimated GFR (Cockcroft-Gault) 79.1 BUN/Creatinine Ratio 17 Glucose Level 106 mg/dL Calcium Level 8.2 mg/dL Total Bilirubin 0.5 mg/dL Aspartate Amino Transf (AST/SGOT) 43 U/L Alanine Aminotransferase (ALT/SGPT) 29 U/L Alkaline Phosphatase 234 U/L Total Protein 6.2 g/dL Albumin 1.9 g/dL Albumin/Globulin Ratio 0.4 PE: GEN: NAD, having lunch LUNGS: CTAB HEART: RRR ABD: dressing intact NEURO/PSYCH: A & O 3 A/P: Perforated SB w/ h/o Crohn's, s/p exp lap, GAVIN, SBR, and appendectomy Leukocytosis - better -- Diet being advanced. Hemodynamically unstable?: No Is patient in severe pain?: No Is NPO status required?: No CRESCENCIO CHANDRA Jun 08, 2019 13:19
[2019-06-08 15:00] VITALS: BP 131/60
[2019-06-08 19:00] VITALS: BP 123/75
[2019-06-08 23:00] VITALS: BP 136/68
[2019-06-09 03:00] VITALS: BP 143/77
[2019-06-09] MEDS: PANTOPRAZOLE 40 MG TABLET.DR. PO SCH (05:41)
[2019-06-09] MEDS: oxyCODONE/APAP 7.5/325 1 TAB TABLET PO PRN ×2 (05:42→10:05)
[2019-06-09 07:00] VITALS: BP 122/73
[2019-06-09] MEDS: LACTOBACILLUS RHAMNOSUS GG 1 CAPSULE. PO SCH (09:15)
[2019-06-09] MEDS: CIPROFLOXACIN HCL 250 MG TABLET. PO SCH (09:15)
[2019-06-09] MEDS: AMOXICILLIN/K CLAV 875/125MG TABLET. PO SCH (09:15)
--- NOTE | 2019-06-09 09:21 | PDOC ---
Infectious Disease Note Subjective Subjective feeling good, ROS ROS no n/v/d/sob Vital Sign Vital Signs Vital Signs Date Time Temp Pulse Resp B/P (MAP) Pulse Ox O2 Delivery O2 Flow Rate FiO2 06/09/19 07:00 97.9 84 18 122/73 (89) 95 Room Air 97.9 06/08/19 08:00 2.0 Physical Exam PHYSICAL EXAM GENERAL: Propped up in bed, alert in NAD HEENT: Oral cavity clear. NECK: Supple, no JVD. LUNGS: Clear bilaterally. No wheezing. HEART: S1, S2. No gallops or murmurs. ABDOMEN: Distended. Dressing in place, dry, not taken down. Bowel sounds hypoactive. EXTREMITIES: No edema, no cyanosis. DERMATOLOGIC: Warm and dry. Changes of vitiligo. No generalized rash noted. CENTRAL NERVOUS SYSTEM: Alert and oriented x 3, grossly nonfocal. PIV Labs Micro Objective Assessment Perforated bowel, status post exploratory laparotomy for lysis of adhesions, small bowel resection and appendectomy, /. Proteus and E. coli so far Crohn's disease, not on any treatment for a couple of years. Leukocytosis Lactic acidosis. Acute kidney injury. Plan Plan of Care po augmentin and cipro, for 5 days f/u cultures Supportive care ZEKE BARROS MD Jun 09, 2019 09:21
[2019-06-09] MEDS ORDERED: AMOX1TAB11 PO (10:43)
[2019-06-09] MEDS ORDERED: CIPR250T30 PO (10:43)
[2019-06-09] MEDS ORDERED: OXYC1TAB19 PO (10:43)
[2019-06-09 11:00] VITALS: BP 123/71
[2019-06-09] MEDS ORDERED: DOCU-109 PO (11:23)
--- NOTE | 2019-06-09 11:30 | PDOC ---
SURGICAL PROGRESS NOTE Subjective tolerating diet feeling well + stools Vital Signs Vital Signs Date Time Temp Pulse Resp B/P (MAP) Pulse Ox O2 Delivery O2 Flow Rate FiO2 06/09/19 10:05 18 06/09/19 08:00 Room Air 2.0 06/09/19 07:00 97.9 84 122/73 (89) 95 97.9 I&O Intake and Output 06/09/19 07:00 Intake Total 500 ml Balance 500 ml Intake Oral 500 ml # Voids 4 # Bowel Movements 1 General: Alert, Oriented X3, Cooperative Abdomen: Soft, Other (incision c/d/i, no erythema) Labs Laboratory Tests Test 06/08/19 04:00 White Blood Count 11.3 x10^3/uL (4.0-11.0) Red Blood Count 3.92 x10^6/uL (4.30-5.70) Hemoglobin 10.6 g/dL (13.0-17.5) Hematocrit 32.8 % (39.0-53.0) Mean Corpuscular Volume 84 fL (79-100) Mean Corpuscular Hemoglobin 27 pg (25-35) Mean Corpuscular Hemoglobin Concent 32 g/dL (31-37) Red Cell Distribution Width 15.2 % (11.5-14.5) Platelet Count 480 x10^3/uL (140-400) Sodium Level 136 mmol/L (136-145) Potassium Level 4.2 mmol/L (3.5-5.1) Chloride Level 102 mmol/L (98-107) Carbon Dioxide Level 26 mmol/L (21-32) Anion Gap 8 (6-14) Blood Urea Nitrogen 17 mg/dL (8-26) Creatinine 1.0 mg/dL (0.7-1.3) Estimated GFR (Cockcroft-Gault) 79.1 BUN/Creatinine Ratio 17 (6-20) Glucose Level 106 mg/dL (70-99) Calcium Level 8.2 mg/dL (8.5-10.1) Total Bilirubin 0.5 mg/dL (0.2-1.0) Aspartate Amino Transf (AST/SGOT) 43 U/L (15-37) Alanine Aminotransferase (ALT/SGPT) 29 U/L (16-63) Alkaline Phosphatase 234 U/L (46-116) Total Protein 6.2 g/dL (6.4-8.2) Albumin 1.9 g/dL (3.4-5.0) Albumin/Globulin Ratio 0.4 (1.0-1.7) Assessment/Plan dc home scripts e shahlaibed CHAPARRITA WILKINSON [employer] Jun 09, 2019 11:30
--- NOTE | 2019-06-09 12:15 | NUR ---
Discharge Note: ANGEL FRANKS Discharge instructions and discharge home medications reviewed with Patient and a copy given. All questions have been answered and understanding verbalized. The following instructions and handouts were given: lap bowel resection Discontinued lines Patient discharged home with alll belongings.
--- NOTE | 2019-06-09 12:19 | PDOC ---
Subjective: Subjective: Going home today, feeling better. Objective: Vital Signs: Vital Signs Date Time Temp Pulse Resp B/P (MAP) Pulse Ox O2 Delivery O2 Flow Rate FiO2 06/09/19 11:00 98.1 89 18 123/71 (88) 96 Room Air 98.1 06/09/19 08:00 2.0 Labs: BLOOD CULTURE Preliminary NO GROWTH AFTER 3 DAYS PE: GEN: NAD - up to chair, dressed to leave NEURO/PSYCH: A & O 3 A/P: Perforated SB w/ h/o Crohn's, s/p exp lap, GAVIN, SBR, and appendectomy -- DC per primary/surgery, follow-up w/ Dr. Gardner in clinic. Hemodynamically unstable?: No Is patient in severe pain?: No Is NPO status required?: No CRESCENCIO CHANDRA Jun 09, 2019 12:19
--- NOTE | 2019-06-09 12:49 | DS ---
DATE OF DISCHARGE: 06/09/2019 HOSPITAL COURSE: The patient is a 48-year-old male patient who was admitted with bowel perforation and diffuse peritonitis. He was seen in consultation by the surgical team, and he underwent exploratory laparotomy, lysis of adhesions, small bowel resection, and appendectomy. He was treated with IV antibiotic as well as NG tube. His bowel movements improved and NG tube was removed. He is now tolerating his diet and was discharged home to follow with the Gastroenterology team as well as the surgical team. PHYSICAL EXAMINATION: GENERAL: Today, he looked well and was clearly in no apparent respiratory distress. No pallor, jaundice, cyanosis, or thyromegaly. No jugular venous distension. No limb edema. VITAL SIGNS: His heart rate was 84, blood pressure 122/73, temperature 97.9, respiratory rate was 18, and oxygen saturation was 95%. The rest of clinical exam is stable. LABORATORY DATA: His lab work showed a white cell count of 11,300, hemoglobin 11, hematocrit 33, MCV 84, and platelet count of 180,000. Serum sodium 136, potassium 4.2, chloride 102, bicarbonate 26, anion gap of 8, BUN 17, creatinine 1, estimated GFR was 79 mL per minute, and his glucose 106. DISCHARGE MEDICATIONS: He was discharged home to continue on Augmentin 875 mg once a day for 5 more days, ciprofloxacin 500 mg twice a day for 5 more days, Colace 100 mg twice a day, oxycodone/APAP 7.5 mg 1 tablet every 4 hours as well as albuterol sulfate 2 puffs every 4 times a day. FINAL DISCHARGE DIAGNOSES: 1. Perforated small bowel, status post exploratory laparotomy, lysis of adhesion, small bowel resection, and appendectomy. 2. Diffuse peritonitis with growth of Proteus mirabilis and Escherichia coli. 3. Crohn disease. 4. Bronchial asthma/chronic obstructive pulmonary disease. 5. Nephrolithiasis. 6. Postoperative paralytic ileus, improving. SAMREEN GOODE MD DR: ACE/suzette JOB#: [id number] / [id number]
== END 2019-06-09 12:29 | disposition home or self-care (01) | DRG 329 ==
LOC: 2 NORTH 05:31 → 1 WEST ICU 11:27 → 4 NORTH 06-03 13:36
PROVIDERS: ADMIT Internal Medicine; ATTEND Internal Medicine
PROC: 0DB80ZZ Excision of Small Intestine, Open Approach (ICD-10-PCS; 2019-06-02)
PROC: 0DTJ0ZZ Resection of Appendix, Open Approach (ICD-10-PCS; principal; 2019-06-02 10:30)
DX: K63.1 Perforation of intestine (nontraumatic) (principal); K65.0 Generalized (acute) peritonitis; K65.9 Peritonitis, unspecified; E87.2 Acidosis; K50.90 Crohn's disease, unspecified, without complications; K56.0 Paralytic ileus; N17.9 Acute kidney failure, unspecified; E66.9 Obesity, unspecified; J44.9 Chronic obstructive pulmonary disease, unspecified; K66.0 Peritoneal adhesions (postprocedural) (postinfection); N20.0 Calculus of kidney; B96.4 Proteus (mirabilis) (morganii) as the cause of diseases classified elsewhere; B96.20 Unspecified Escherichia coli [E. coli] as the cause of diseases classified elsewhere; Z68.34 Body mass index [BMI] 34.0-34.9, adult; Z82.49 Family history of ischemic heart disease and other diseases of the circulatory system; Z87.442 Personal history of urinary calculi; Z87.891 Personal history of nicotine dependence
CPT/HCPCS: 36415; 74018; 80053; 83605; 85007; 85025; 85027; 87040; 87071; 87075; 87186; 88302; 88307; 94640; A7015; J0330; J1100; J1170; J1450; J1650; J2020; J2250; J2405; J2543; J2704; J2710; J3010; J3490; J7030; J7120; J7613; 97116; G0378

== ENCOUNTER 2019-06-22 08:39 | Emergency (ER) | payer OTHER ==
[~2019-06-22] VITALS: Ht 175.3 cm; Wt 100.0 kg
[~2019-06-22 08:39] MED LIST: AMOX1TAB11 PO; CIPR250T30 PO; DOCU-109 PO; OXYC1TAB19 PO; VENTOLIN HFA18 GM INH
--- NOTE | 2019-06-22 09:22 | PHYS DOC ---
Past Medical History Past Surgical History: Appendectomy, Other (small bowel obstruction surgery) Smoking: Chew Adult General Chief Complaint Chief Complaint: LOWER EXTREMITY SWELLING HPI HPI Patient is a 48 year old male that presents to the ED for left lower extremity pain and swelling. Onset was 3-4 days ago. Patient reports that he had a surgery on his abdomen on the second of the month for small bowel obstruction and appendectomy. Last 4 days he has experience left calf swelling and pain while walking. Patient denies redness of the lower extremity. He denies trauma or injury to the lower extremity. Patient states that he has a follow-up appointment with the surgeon tomorrow. He denies chest pain, shortness of breath, nausea, vomiting, or diarrhea. Review of Systems Review of Systems Constitutional: Denies fever or chills Eyes: Denies redness or eye pain HENT: Denies nasal congestion or sore throat Respiratory: Denies cough or shortness of breath Cardiovascular: Denies chest pain or palpitations GI: Denies abdominal pain, nausea, or vomiting : Denies dysuria or hematuria Musculoskeletal: Denies back pain or joint pain. Left lower leg pain with w alking and swelling. Integument: Denies rash or skin lesions Neurologic: Denies headache, focal weakness or sensory changes Complete systems were reviewed and found to be within normal limits, except as documented in this note. Allergies Allergies Allergies Coded Allergies Type Severity Reaction Last Updated Verified No Known Allergies Allergy Unknown 06/02/19 Yes Physical Exam Physical Exam Constitutional: Well developed, well nourished, no acute distress, non-toxic appearance HENT: Normocephalic, atraumatic, oropharynx moist Eyes: Conjunctiva normal, no discharge Neck: Normal range of motion, no tenderness, supple Cardiovascular: Heart rate normal, regular rhythm Lungs & Thorax: Bilateral breath sounds clear to auscultation, no wheezing Abdomen: Soft, no tenderness, midline abdominal scar intact and healing Skin: Warm, dry, no erythema, no rash Back: No tenderness, no CVA tenderness Extremities: Tenderness to deep palpation of left posterior lower extremity with 1+ edema. No redness, ROM intact. Neurologic: Alert and oriented X 3, normal motor function, normal sensory function, no focal deficits noted Psychologic: Affect normal, judgement normal Current Patient Data Vital Signs Vital Signs Date Time Temp Pulse Resp B/P (MAP) Pulse Ox O2 Delivery O2 Flow Rate FiO2 06/22/19 10:40 91 16 122/80 (94) 95 06/22/19 09:00 97.8 Room Air 97.8 Lab Values Laboratory Tests Test 06/22/19 09:17 White Blood Count 7.4 x10^3/uL (4.0-11.0) Red Blood Count 3.91 x10^6/uL (4.30-5.70) L Hemoglobin 10.4 g/dL (13.0-17.5) L Hematocrit 31.4 % (39.0-53.0) L Mean Corpuscular Volume 81 fL (79-100) Mean Corpuscular Hemoglobin 27 pg (25-35) Mean Corpuscular Hemoglobin Concent 33 g/dL (31-37) Red Cell Distribution Width 14.8 % (11.5-14.5) H Platelet Count 931 x10^3/uL (140-400) *H Neutrophils (%) (Auto) 64 % (31-73) Lymphocytes (%) (Auto) 22 % (24-48) L Monocytes (%) (Auto) 9 % (0-9) Eosinophils (%) (Auto) 5 % (0-3) H Basophils (%) (Auto) 1 % (0-3) Neutrophils # (Auto) 4.7 x10^3/uL (1.8-7.7) Lymphocytes # (Auto) 1.6 x10^3/uL (1.0-4.8) Monocytes # (Auto) 0.7 x10^3/uL (0.0-1.1) Eosinophils # (Auto) 0.3 x10^3/uL (0.0-0.7) Basophils # (Auto) 0.1 x10^3/uL (0.0-0.2) Platelet Estimate Increased (ADEQUATE) Anisocytosis Slight Prothrombin Time 14.6 SEC (11.7-14.0) H Prothrombin Time INR 1.2 (0.8-1.1) H Activated Partial Thromboplast Time 34 SEC (24-38) Sodium Level 139 mmol/L (136-145) Potassium Level 4.4 mmol/L (3.5-5.1) Chloride Level 101 mmol/L (98-107) Carbon Dioxide Level 29 mmol/L (21-32) Anion Gap 9 (6-14) Blood Urea Nitrogen 11 mg/dL (8-26) Creatinine 1.1 mg/dL (0.7-1.3) Estimated GFR (Cockcroft-Gault) 70.9 BUN/Creatinine Ratio 10 (6-20) Glucose Level 151 mg/dL (70-99) H Calcium Level 9.4 mg/dL (8.5-10.1) Magnesium Level 1.8 mg/dL (1.8-2.4) Total Bilirubin 0.2 mg/dL (0.2-1.0) Aspartate Amino Transferase (AST) 16 U/L (15-37) Alanine Aminotransferase (ALT) 14 U/L (16-63) L Alkaline Phosphatase 95 U/L (46-116) Total Protein 7.7 g/dL (6.4-8.2) Albumin 2.8 g/dL (3.4-5.0) L Albumin/Globulin Ratio 0.6 (1.0-1.7) L Laboratory Tests 06/22/19 09:17 Laboratory Tests 06/22/19 09:17 EKG EKG [] Radiology/Procedures Radiology/Procedures PROCEDURE: VENOUS LOWER EXTREMITY LEFT Left lower extremity venous duplex study Clinical History: Lower extremity edema Technique: Using a combination of real time ultrasound imaging and color-flow and pulse Doppler imaging techniques, including spectral analysis, graded compression and augmentation, duplex evaluation of the deep venous system of the left lower extremity was performed. Multiple images were obtained. Findings: There is no sonographic evidence of deep venous thrombosis involving the visualized deep venous structures of the left lower extremity Impression: No evidence of deep venous thrombosis involving the left lower extremity Electronically signed by: Cm Baldwin MD (06/22/2019 9:47 AM) [facility] Course & Med Decision Making Course & Med Decision Making Pertinent Labs and Imaging studies reviewed. (See chart for details) Patient presents to the ED with left lower extremity pain and swelling for the last 3-4 days. Patient is status post abdominal surgery for small bowel obstruction and appendectomy on the second of the month. Labs and imaging for DV T rule out done in the ED. Duplex ultrasound negative. Labs remarkable for anemia and markedly increased platelet count at 931. 1007: Extensive discussion with patient regarding thrombocytosis finding. Patient stable in the ED, not tachycardic, no shortness of breath, no pleuritic chest pain, O2 sats normal. Risk vs benefit analysis of CT scan discussed with patient and family, and decision to hold imaging at this time was made. Patient and family were understanding and agreeable with plan. 1012: Discussed case with Dr. Wolf (Heme/onc) who agreed that likely etiology of thrombocytosis is reactive in nature due to postoperative state of patient. Would like patient to follow up with surgeon or PCP with repeat CBC within the next week. Patient stable for discharge with outpatient follow-up with PCP. Discussed findings and plan with patient and family, who acknowledge understanding and agreement. Dragon Disclaimer Dragon Disclaimer This electronic medical record was generated, in whole or in part, using a voice recognition dictation system. Departure Departure Impression: Primary Impression: Left leg pain Additional Impression: Thrombocytosis Disposition: 01 HOME, SELF-CARE Condition: STABLE Referrals: ABRAM TRIPLETT (PCP) TAYLOR PURDY MD Patient Instructions: Leg Cramps, Platelet Count Additional Instructions: Please have your family doctor or general surgeon repeat CBC (complete blood count) in 1 week Problem Qualifiers CHICA MAY DO Jun 22, 2019 09:22
[2019-06-22 09:29] LABS: BASO # 0.1 x10^3/uL (0.0-0.2); BASO % 1 % (0-3); EOS # 0.3 x10^3/uL (0.0-0.7); EOS % 5 % (0-3); HEMATOCRIT 31.4 % (39.0-53.0); HEMOGLOBIN 10.4 g/dL (13.0-17.5); LYMPH # 1.6 x10^3/uL (1.0-4.8); LYMPH % 22 % (24-48); MEAN CORPUSCULAR HEMOGLOBIN 27 pg (25-35); MEAN CORPUSCULAR HGB CONC 33 g/dL (31-37); MEAN CORPUSCULAR VOLUME 81 fL (79-100); MONO # 0.7 x10^3/uL (0.0-1.1); MONO % 9 % (0-9); NEUT # 4.7 x10^3/uL (1.8-7.7); NEUT % 64 % (31-73); RED BLOOD COUNT 3.91 x10^6/uL (4.30-5.70); RED CELL DISTRIBUTION WIDTH 14.8 % (11.5-14.5); WHITE BLOOD COUNT 7.4 x10^3/uL (4.0-11.0)
[2019-06-22 09:39] LABS: CALCIUM 9.4 mg/dL (8.5-10.1); CREATININE 1.1 mg/dL (0.7-1.3); GFR 70.9; POTASSIUM 4.4 mmol/L (3.5-5.1)
[2019-06-22 09:41] LABS: PLATELET COUNT 931 x10^3/uL (140-400)
[2019-06-22 09:42] LABS: PROTHROMBIN TIME PATIENT 14.6 SEC (11.7-14.0)
[2019-06-22 09:45] LABS: ALBUMIN 2.8 g/dL (3.4-5.0); ALBUMIN/GLOBULIN RATIO 0.6 (1.0-1.7); MAGNESIUM 1.8 mg/dL (1.8-2.4); TOTAL BILIRUBIN 0.2 mg/dL (0.2-1.0); TOTAL PROTEIN 7.7 g/dL (6.4-8.2)
--- NOTE | 2019-06-22 09:51 | RAD ---
Left lower extremity venous duplex study Clinical History: Lower extremity edema Technique: Using a combination of real time ultrasound imaging and color-flow and pulse Doppler imaging techniques, including spectral analysis, graded compression and augmentation, duplex evaluation of the deep venous system of the left lower extremity was performed. Multiple images were obtained. Findings: There is no sonographic evidence of deep venous thrombosis involving the visualized deep venous structures of the left lower extremity Impression: No evidence of deep venous thrombosis involving the left lower extremity Electronically signed by: Cm Baldwin MD (06/22/2019 9:47 AM) [id number]
[2019-06-22 10:20] LABS: PLT ESTIMATE INCREASED (ADEQUATE)
[2019-06-22 10:21] LABS: ANISOCYTOSIS SLIGHT
[2019-06-22 10:40] VITALS: BP 122/80
== END 2019-06-22 10:56 | disposition home or self-care (01) ==
LOC: ER 08:39
DX: M79.662 Pain in left lower leg (principal); D47.3 Essential (hemorrhagic) thrombocythemia; R60.9 Edema, unspecified; F17.200 Nicotine dependence, unspecified, uncomplicated; Z90.89 Acquired absence of other organs; Z98.890 Other specified postprocedural states
CPT/HCPCS: 36415; 80053; 83735; 85025; 85610; 85730; 93971; 99285